=== PATIENT | female | born 1970 | race Caucasian/White ===

== ENCOUNTER 2024-08-14 20:44 | Inpatient (IN) | payer MEDICAID, OTHER ==
[~2024-08-14] VITALS: Ht 165.1 cm; Wt 142.0 kg
[~2024-08-14 20:44] MED LIST: ALBU108A5 INH; ASPI81CH59 PO; BUPR100T16 PO; CARV6.2551 PO; FLUT250M2 INH; LEVO100T8 PO; LISI20TA56 PO; METO25TA5 PO
[2024-08-14] MEDS: ALBUTEROL SULF 2.5 MG/0.5ML(0.5%) NEB SOLN HHN ONE (21:16)
[2024-08-14] MEDS: IPRATROPIUM BROM 0.5 MG/2.5ML INH SOL HHN ONE (21:16)
[2024-08-14 21:31] LABS: Basophils # (auto) 0.1 10 ^3/uL (0-0.2); Basophils % (auto) 1.1 % (0.0-2.0); Eosinophils # (auto) 0.4 10 ^3/uL (0-0.8); Eosinophils % (auto) 4.8 % (0.0-7.0); Hematocrit 46.5 % (36.0-46.0); Hemoglobin 15.6 g/dL (12.2-16.2); Lymphocytes # (auto) 1.8 10 ^3/uL (0.4-5.4); Lymphocytes % (auto) 21.9 % (10.0-50.0); Mean Corpuscular Hemoglobin 31.4 pg (28.0-32.0); Mean Corpuscular Hgb Conc. 33.7 g/dL (32.0-36.0); Mean Corpuscular Volume 93.4 fL (80.0-100.0); Monocytes # (auto) 0.5 10 ^3/uL (0-1.3); Monocytes % (auto) 6.4 % (0.0-12.0); Neutrophils # (auto) 5.6 10 ^3/uL (1.6-8.6); Neutrophils % (auto) 65.8 % (37.0-80.0); Nucleated Red Blood Cells % 0.1 %; Platelet Count (auto) 335 10^3/uL (140-450); Red Blood Cells 4.97 10^6/uL (4.0-5.20); Red Cell Distribution Width 15.1 % (11.8-14.3); White Blood Cell 8.4 10^3/uL (4.4-10.8)
[2024-08-14 21:35] LABS: Alanine Aminotransferase 50 U/L (7-40); Albumin 4.8 g/dL (3.2-4.8); Alkaline Phosphatase 107 U/L (46-116); Anion Gap 6 (5-15); Aspartate Aminotransferase 42 U/L (13-40); Blood Urea Nitrogen 15 mg/dL (9-23); Calcium 10.6 mg/dL (8.7-10.4); Carbon Dioxide 31 mmol/L (20-31); Chloride 100 mmol/L (98-107); Glucose 229 mg/dL (74-106); Magnesium 2.2 mg/dL (1.6-2.6); Potassium 4.1 mmol/L (3.5-5.1); Sodium 137 mmol/L (136-145); Total Protein 8.2 g/dL (5.7-8.2)
[2024-08-14 21:36] LABS: Bilirubin, Total 0.4 mg/dL (0.2-1.0)
[2024-08-14 21:45] LABS: INR 1.09 (0.9-1.15); Partial Thromboplastin Time 27.1 SEC (24.5-34.5); Prothrombin Time 11.5 sec (9.3-11.8)
[2024-08-14 22:02] VITALS: PULSE 82; RESP 18; O2SAT 94
[2024-08-14] MEDS: methylPREDNISolone SOD SUCC 125 MG/2 ML VL IV ONE (22:42)
[2024-08-14 22:55] LABS: COVID19 ANTIGEN SOFIA FIA NEGATIVE (NEGATIVE)
[2024-08-14 23:35] VITALS: BP 154/80; PULSE 76; O2SAT 100
[2024-08-14 23:45] VITALS: O2SAT 96
[2024-08-14] MEDS ORDERED: ONDANSETRON HCL 4 MG/2 ML VIAL IV PRN (23:45)
[2024-08-14] MEDS ORDERED: MORPHINE SULFATE INJ 2 MG/ml SYRG IV PRN (23:45)
[2024-08-14] MEDS ORDERED: TEMAZEPAM 15 MG CAP PO PRN (23:45)
[2024-08-14] MEDS ORDERED: NITROGLYCERIN 0.4 MG SL TAB SL PRN (23:45)
[2024-08-14] MEDS ORDERED: ALBUTEROL SULF 2.5 MG/0.5ML(0.5%) NEB SOLN NEB PRN (23:45)
[2024-08-14] MEDS ORDERED: IPRATROPIUM BROM 0.5 MG/2.5ML INH SOL NEB PRN (23:45)
[2024-08-14] MEDS ORDERED: ACETAMINOPHEN 325 MG TAB PO PRN (23:45)
[2024-08-15] VITALS (9 sets, daily range): BP systolic 123–154; BP diastolic 55–80; PULSE 80–90; RESP 16–21; TEMP 97–98.6; O2SAT 92–100
[2024-08-15 02:23] LABS: Urine Bacteria None Seen /hpf (None Seen)
[2024-08-15] MEDS ORDERED: ONDANSETRON HCL 4 MG/2 ML VIAL IV PRN (02:30)
[2024-08-15] MEDS ORDERED: ACETAMINOPHEN 325 MG TAB PO PRN (02:30)
[2024-08-15] MEDS ORDERED: MORPHINE SULFATE INJ 2 MG/ml SYRG IV PRN (02:30)
[2024-08-15] MEDS ORDERED: NITROGLYCERIN 0.4 MG SL TAB SL PRN (02:30)
[2024-08-15 03:18] LABS: Urine Blood Negative /uL (Negative); Urine Clarity Turbid (Clear); Urine Color Yellow (Yellow); Urine Protein, UAD 1+ (Negative); Urine Specific Gravity 1.029 (1.001-1.035); Urine Urobilinogen 2 mg/dL (Negative); Urine WBC 23 /hpf (0 - 5)
[2024-08-15 03:25] LABS: Amphetamine Screen, Urine Pos (NEGATIVE); Barbiturate Scree,Urine Neg (NEGATIVE); Benzodiazephine Screen, Urine Neg (NEGATIVE)
[2024-08-15 03:26] LABS: Cannabinoid Screen, Urine Neg (NEGATIVE); Cocaine Screen, Urine Neg (NEGATIVE); Opiate Scree,Urine Pos (NEGATIVE); Phencyclidine Screen, Urine Neg (NEGATIVE)
[2024-08-15] MEDS: HYDROcodone-ACET 5/325MG TAB PO PRN (03:34)
[2024-08-15 03:38] LABS: Basophils # (auto) 0.1 10 ^3/uL (0-0.2); Basophils % (auto) 0.6 % (0.0-2.0); Eosinophils # (auto) 0.1 10 ^3/uL (0-0.8); Eosinophils % (auto) 1.2 % (0.0-7.0); Hemoglobin 14.4 g/dL (12.2-16.2); Lymphocytes # (auto) 0.7 10 ^3/uL (0.4-5.4); Lymphocytes % (auto) 7.1 % (10.0-50.0); Mean Corpuscular Hemoglobin 32.1 pg (28.0-32.0); Mean Corpuscular Hgb Conc. 34.2 g/dL (32.0-36.0); Mean Corpuscular Volume 93.7 fL (80.0-100.0); Monocytes # (auto) 0.1 10 ^3/uL (0-1.3); Monocytes % (auto) 1.5 % (0.0-12.0); Neutrophils # (auto) 8.4 10 ^3/uL (1.6-8.6); Neutrophils % (auto) 89.6 % (37.0-80.0); Nucleated Red Blood Cells % 0.1 %; Platelet Count (auto) 271 10^3/uL (140-450); Red Blood Cells 4.48 10^6/uL (4.0-5.20); Red Cell Distribution Width 14.7 % (11.8-14.3); White Blood Cell 9.4 10^3/uL (4.4-10.8)
[2024-08-15 03:49] LABS: Chloride 98 mmol/L (98-107); Potassium 4.3 mmol/L (3.5-5.1); Sodium 137 mmol/L (136-145)
[2024-08-15 03:50] LABS: Anion Gap 6 (5-15); Carbon Dioxide 33 mmol/L (20-31)
[2024-08-15 03:51] LABS: Calcium 9.9 mg/dL (8.7-10.4)
[2024-08-15 03:55] LABS: Glucose 299 mg/dL (74-106)
[2024-08-15 03:56] LABS: BUN/Creatinine Ratio 14.8 (10.0-20.0); Blood Urea Nitrogen 18 mg/dL (9-23)
[2024-08-15] MEDS: LORazepam 0.5 MG TAB PO PRN (05:27)
[2024-08-15] MEDS: ASPirin 81 mg TAB PO SCH (09:47)
[2024-08-15] MEDS: ENOXAPARIN SOD 40 MG/0.4 ML SYRINGE SC SCH (09:48)
[2024-08-15] MEDS: METOPROLOL TARTRATE 25 MG TAB PO SCH (09:48)
[2024-08-15] MEDS ORDERED: ASPirin 81 mg TAB PO SCH (10:00)
[2024-08-15] MEDS ORDERED: ENOXAPARIN SOD 40 MG/0.4 ML SYRINGE SC SCH (10:00)
[2024-08-15] MEDS ORDERED: levoFLOXacin 500MG 100 ML IV SCH ×2 (10:00)
[2024-08-15] MEDS: DOXYCYCLINE 100MG/250ML 250 ML IV SCH (10:05)
[2024-08-15] MEDS ORDERED: CHOL20007 PO (17:09)
[2024-08-15] MEDS ORDERED: FURO40TA4 PO (17:09)
[2024-08-15] MEDS ORDERED: CLOP75TA70 PO (17:09)
[2024-08-15] MEDS ORDERED: BUPR-346 PO (17:09)
[2024-08-15] MEDS ORDERED: POTA-36 PO (17:09)
[2024-08-15] MEDS ORDERED: ATOR40TA52 PO (17:09)
[2024-08-15] MEDS ORDERED: ALBUAER3 IN (17:10)
[2024-08-15] MEDS ORDERED: NAPR220C PO (17:10)
[2024-08-15] MEDS: buPROPion HCL 100 MG TAB PO SCH (19:00)
[2024-08-15] MEDS: ALBUTEROL SULF 2.5 MG/0.5ML(0.5%) NEB SOLN NEB PRN (19:32)
[2024-08-15] MEDS: IPRATROPIUM BROM 0.5 MG/2.5ML INH SOL NEB PRN (19:32)
[2024-08-15] MEDS: ATORVASTATIN 20 MG TAB PO SCH (21:03)
[2024-08-15] MEDS: DOCUSATE SOD 100 MG CAP PO PRN (21:56)
[2024-08-15] MEDS ORDERED: ATORVASTATIN 20 MG TAB PO SCH (22:00)
[2024-08-16] VITALS (7 sets, daily range): BP systolic 123–133; BP diastolic 52–86; PULSE 77–90; RESP 17–20; TEMP 97.6–98.2; O2SAT 94–100
[2024-08-16] MEDS: LEVOTHYROXINE SODIUM 100 MCG TAB PO SCH (06:17)
[2024-08-16] MEDS: FUROSEMIDE 40 MG TAB PO SCH (09:13)
[2024-08-16 11:09] LABS: Basophils # (auto) 0.1 10 ^3/uL (0-0.2); Basophils % (auto) 1.2 % (0.0-2.0); Eosinophils # (auto) 0.3 10 ^3/uL (0-0.8); Eosinophils % (auto) 2.6 % (0.0-7.0); Hematocrit 43.8 % (36.0-46.0); Lymphocytes # (auto) 1.9 10 ^3/uL (0.4-5.4); Lymphocytes % (auto) 18.8 % (10.0-50.0); Mean Corpuscular Hemoglobin 32.5 pg (28.0-32.0); Mean Corpuscular Hgb Conc. 34.3 g/dL (32.0-36.0); Mean Corpuscular Volume 94.7 fL (80.0-100.0); Monocytes # (auto) 0.7 10 ^3/uL (0-1.3); Monocytes % (auto) 6.8 % (0.0-12.0); Neutrophils % (auto) 70.6 % (37.0-80.0); Nucleated Red Blood Cells % 0.3 %; Platelet Count (auto) 344 10^3/uL (140-450); Red Blood Cells 4.63 10^6/uL (4.0-5.20); Red Cell Distribution Width 15.2 % (11.8-14.3); White Blood Cell 9.9 10^3/uL (4.4-10.8)
[2024-08-16 11:15] LABS: Anion Gap 4 (5-15); Carbon Dioxide 33 mmol/L (20-31); Chloride 98 mmol/L (98-107); Potassium 4.6 mmol/L (3.5-5.1); Sodium 135 mmol/L (136-145)
[2024-08-16 11:17] LABS: Calcium 10.1 mg/dL (8.7-10.4)
[2024-08-16 11:21] LABS: BUN/Creatinine Ratio 15.5 (10.0-20.0); Blood Urea Nitrogen 18 mg/dL (9-23); Glucose 213 mg/dL (74-106)
[2024-08-16] MEDS ORDERED: LISI20TA56 PO (13:03)
[2024-08-16] MEDS ORDERED: LEVO100T8 PO (13:03)
[2024-08-16] MEDS ORDERED: POTA-36 PO (13:03)
[2024-08-16] MEDS ORDERED: ALBU108A5 INH (13:03)
[2024-08-16] MEDS ORDERED: ASPI81CH59 PO (13:03)
[2024-08-16] MEDS ORDERED: BUPR100T16 PO (13:03)
[2024-08-16] MEDS ORDERED: FLUT250M2 INH (13:03)
[2024-08-16] MEDS ORDERED: CLOP75TA70 PO (13:03)
[2024-08-16] MEDS ORDERED: FURO40TA4 PO (13:03)
[2024-08-16] MEDS ORDERED: ATOR40TA52 PO (13:03)
[2024-08-16] MEDS ORDERED: CARV6.2551 PO (13:03)
== END 2024-08-16 16:25 | disposition home or self-care (01) | DRG 133 ==
LOC: ER 20:44 → TELE 23:47 → TELE-CENTR 08-15 14:49
PROVIDERS: ADMIT Nurse Practitioner; ATTEND Hospitalist
PROC: 5A09357 Assistance with Respiratory Ventilation, Less than 24 Consecutive Hours, Continuous Positive Airway Pressure (ICD-10-PCS; principal; 2024-08-14)
DX: J96.21 Acute and chronic respiratory failure with hypoxia (principal); I21.A1 Myocardial infarction type 2; I50.23 Acute on chronic systolic (congestive) heart failure; I42.8 Other cardiomyopathies; J44.1 Chronic obstructive pulmonary disease with (acute) exacerbation; Z68.43 Body mass index [BMI] 50.0-59.9, adult; I11.0 Hypertensive heart disease with heart failure; N39.0 Urinary tract infection, site not specified; E66.01 Morbid (severe) obesity due to excess calories; E78.5 Hyperlipidemia, unspecified; F17.210 Nicotine dependence, cigarettes, uncomplicated; F15.10 Other stimulant abuse, uncomplicated; Z20.822 Contact with and (suspected) exposure to COVID-19; I25.10 Atherosclerotic heart disease of native coronary artery without angina pectoris; E03.9 Hypothyroidism, unspecified; Z85.41 Personal history of malignant neoplasm of cervix uteri; Z88.0 Allergy status to penicillin; Z90.710 Acquired absence of both cervix and uterus; Z90.49 Acquired absence of other specified parts of digestive tract; Z91.199 Patient's noncompliance with other medical treatment and regimen due to unspecified reason; Z82.49 Family history of ischemic heart disease and other diseases of the circulatory system; Z99.81 Dependence on supplemental oxygen
CPT/HCPCS: 36415; 71045; 80048; 80053; 80307; 81001; 83036; 83735; 83880; 84484; 85025; 85610; 85730; 87081; 87426; 93005; 94640; 94660; 99291; G0378; J3490

== ENCOUNTER 2025-07-04 18:59 | Inpatient (IN) | payer MEDICAID ==
[~2025-07-04] VITALS: Ht 165.1 cm; Wt 130.7 kg
[~2025-07-04 18:59] MED LIST changes: +ATOR40TA52 PO; +CLOP75TA70 PO; +FURO40TA4 PO; -METO25TA5 PO; +POTA-36 PO
--- NOTE | 2025-07-04 19:53 | ED.PDOC ---
History of Present Illness(SKN HPI Comments 55-YEAR-OLD DIABETIC FEMALE CC OF PAIN TO THE RIGHT FOOT S/P SPIDER BITE THREE WEEKS AGO PT STATES SHE COMPLETED ABX TREATMENT BUT STILL C/O OF GREEN DISCHARGE FROM WOUND BASE. DENIES FEVER, CHILLS, NAUSEA, VOMITING, CHEST PAIN, SHORTNESS BREATH, ABDOMINAL PAIN, NUMBNESS, WEAKNESS, OR DIFFICULTY BREATHING. Chief Complaint: Wound Check Time Seen by MD: 19:08 History of Present Illness: Nurses Notes, Medications, Allergies Allergies: Coded Allergies: Methylphenidate (Verified Allergy, Unknown, 08/14/24) Penicillins (Verified Allergy, Unknown, 08/14/24) Home Meds Active Scripts Carvedilol (Carvedilol) 6.25 Mg Tab, 1 TAB PO BID for 100 Days, #200 TAB Prov:TRACI HOGAN MD 08/16/24 Aspirin (Aspirin Low Dose) 81 Mg Chw, 1 TAB PO DAILY for 60 Days, #60 TAB.CHEW Prov:TRACI HOGAN MD 08/16/24 Lisinopril (Lisinopril) 20 Mg Tab, 1 TAB PO BID for 45 Days, #90 TAB Prov:TRACI HOGAN MD 08/16/24 Levothyroxine Sodium (Levothyroxine Sodium) 100 Mcg Tab, 1 TAB PO QAM for 60 Days, #60 TAB Prov:TRACI HOGAN MD 08/16/24 Albuterol Sulfate (Albuterol Sulfate Hfa) 108 Mcg/Act Aer, 1 PUFF INH Q6HP PRN for SHORTNESS OF BREATH OR WHEEZIN for 30 Days, #8.5 AER Prov:TRACI HOGAN MD 08/16/24 Bupropion Hcl (Bupropion Hcl Er) 100 Mg Tab, 1 TAB PO BID for 14 Days, #28 TAB Prov:TRACI HOGAN MD 08/16/24 Fluticasone-Salmeterol (Advair Diskus 250/50) 1 Puff Ih, 1 PUFF INH BID for 30 Days, #60 INH Prov:TRACI HOGAN MD 08/16/24 Atorvastatin Calcium (ATORVASTATIN CALCIUM) 40 Mg Tab, 1 TAB PO QPM, #90 TAB 3 Refills Prov:TRACI HOGAN MD 08/16/24 Furosemide (Furosemide) 40 Mg Tab, 40 MG PO DAILY for 30 Days, #30 TAB Prov:TRACI HOGAN MD 08/16/24 Potassium Chloride (POTASSIUM CHLORIDE CR) 10 Meq Tb, 10 MEQ PO DAILY for 30 Days, #30 TAB Prov:TRACI HOGAN MD 08/16/24 Clopidogrel Bisulfate (CLOPIDOGREL) 75 Mg Tab, 75 MG PO DAILY for 30 Days, MG Prov:TRACI HOGAN MD 08/16/24 Information Source: Patient Mode of Arrival: Ambulatory Past Medical History PAST MEDICAL HISTORY: Cancer, CHF, COPD, HTN, MO, Thyroid Surgical History: Cholecystectomy, Hernia Repair, Hysterectomy, Tonsillectomy FOOD SAMPLER History: No Pertinent FOOD SAMPLER History Family History Family History: Family hx of Cancer Social History Smoker: Cigarettes Alcohol: Occasionally Drugs: Methamphetamine Lives In: Home All Other Systems: Reviewed and Negative (SEE HPI) Physical Exam General Appearance: No Apparent Distress, Normal HEENT: Normal ENT Inspection, Pharynx Normal Neck: Full Range of Motion, Non-Tender Respiratory: Lungs Clear, No Respiratory Distress, Normal Breath Sounds Cardiovascular: No Edema, No JVD, No Murmur, No Gallop, Normal Peripheral Pulses, Regular Rate/Rhythm Breast Exam: Deferred Gastrointestinal: No Organomegaly, Non Tender, No Pulsatile Mass, Normal Bowel Sounds, Soft Genitalia: Deferred Pelvic: Deferred Rectal: Deferred Extremities: No calf tenderness, Normal capillary refill, Normal range of motion, Pedal edema (RIGHT FOOT PLUS ONE PITTING EDEMA) Musculoskeletal : Apperance: Normal Neurologic: Alert, No Motor Deficits, Normal Affect, Normal Mood, No Sensory Deficits Cerebellar Function: Normal Reflexes: Normal Skin: Dry, Normal Color, Warm, Wounds (APPROXIMATE QUARTER SIZE ULCERATED WOUND PROXIMAL BASE 1ST DIGIT WITH NECROTIC TISSUE AND GREEN DISCHARGE SURROUNDING ERYTHEMA WITH EDEMA STRENGTH SENSORY MOTION INTACT) Lymphatic: No Adenopathy Was a procedure done? Was a procedure done?: No Differential Diagnosis (INTG) Differential Diagnosis: Cellulitis, Contusion, Hematoma, Puncture Wound Differential Diagnosis: Abscess Differential Diagnosis: Fracture X-Ray, Labs, Meds, VS Vital Signs Date Time Temp Pulse Resp B/P (MAP) Pulse Ox O2 Delivery O2 Flow Rate FiO2 07/04/25 20:09 101 18 96 Room Air 07/04/25 20:09 97.8 101 18 144/116 (125) 96 97.8 07/04/25 19:01 97.8 101 18 144/116 91 97.8 Lab Test 8/28/25 22:13 07/04/25 20:20 Range/Units Lactic Acid Level 2.1 *H 2.5 *H 0.4-2.0 mmol/L White Blood Count 9.4 4.4-10.8 10^3/uL Red Blood Count 5.06 4.0-5.20 10^6/uL Hemoglobin 15.5 12.2-16.2 g/dL Hematocrit 45.9 36.0-46.0 % Mean Corpuscular Volume 90.8 80.0-100.0 fL Mean Corpuscular Hemoglobin 30.6 28.0-32.0 pg Mean Corpuscular Hemoglobin Concent 33.7 32.0-36.0 g/dL Red Cell Distribution Width 15.8 H 11.8-14.3 % Platelet Count 343 140-450 10^3/uL Mean Platelet Volume 7.7 6.9-10.8 fL Neutrophils (%) (Auto) 69.2 37.0-80.0 % Lymphocytes (%) (Auto) 21.4 10.0-50.0 % Monocytes (%) (Auto) 5.8 0.0-12.0 % Eosinophils (%) (Auto) 2.5 0.0-7.0 % Basophils (%) (Auto) 1.1 0.0-2.0 % Neutrophils # (Auto) 6.5 1.6-8.6 10 ^3/uL Lymphocytes # (Auto) 2.0 0.4-5.4 10 ^3/uL Monocytes # (Auto) 0.5 0-1.3 10 ^3/uL Eosinophils # (Auto) 0.2 0-0.8 10 ^3/uL Basophils # (Auto) 0.1 0-0.2 10 ^3/uL Nucleated Red Blood Cells 0.1 % Prothrombin Time 11.4 9.3-11.8 sec Prothrombin Time INR 1.08 0.9-1.15 Activated Partial Thromboplast Time 25.6 24.5-34.5 SEC Sodium Level 136 136-145 mmol/L Potassium Level 4.3 3.5-5.1 mmol/L Chloride Level 99 98-107 mmol/L Carbon Dioxide Level 29 20-31 mmol/L Anion Gap 8 5-15 Blood Urea Nitrogen 17 9-23 mg/dL Creatinine 1.35 H 0.550-1.02 mg/dL Glomerular Filtration Rate Calc 47 >90 mL/min BUN/Creatinine Ratio 12.6 10.0-20.0 Serum Glucose 252 H 74-106 mg/dL Hemoglobin A1c 9.3 H <5.7 % A1C Calcium Level 9.9 8.7-10.4 mg/dL Total Bilirubin 0.3 0.2-1.0 mg/dL Aspartate Amino Transferase (AST) 31 13-40 U/L Alanine Aminotransferase (ALT) 32 7-40 U/L Alkaline Phosphatase 93 46-116 U/L Total Protein 7.7 5.7-8.2 g/dL Albumin 4.7 3.2-4.8 g/dL Current Medications Medications (Trade) Dose Ordered Sig/Kathleen Route Start Time Stop Time Status Last Admin Vancomycin HCl 250 ml @ 250 mls/hr ONCE ONCE IV 07/04/25 20:15 07/04/25 21:14 DC 07/04/25 22:20 X-Ray, Labs, Meds, VS Comment CBC CMP WITHIN NORMAL LIMITS. LACTIC ACID ELEVATED X2. PATIENT GIVEN 500 ML FLUID BOLUS, AND 7 UNITS OF INSULIN TO COVER ELEVATED BLOOD SUGAR. ADMITTED FOR SPIDER BITE INFECTION IV ANTIBIOTICS, AND CONTROL OF PATIENT'S ELEVATED BLOOD SUGARS. Time of 1ST Reevaluation: 19:40 Reevaluation 1ST: Unchanged Time of 2ND Reevaluation: 21:11 Reevaluation 2ND: Unchanged Patient Education/Counseling: Diagnosis, Treatment, Prognosis, Need For Follow Up Family Education/Counseling: No Family Present SEPSIS Sepsis Screen Date sepsis recognized/suspect: Jul 04, 2025 Time Sepsis recognized/suspect: 1904 Recent Procedure: No On Antibiotic Therapy: Yes (COMPLETED ABX KEFLEX X10 DAYS AGO) Respiratory Rate >20: No Heart Rate >90: No Temp<36 C (96.8 F) or >38.3 C: No SBP <90 or MAP <65 mmHG: No New Acute Mental Status Change: No Is the patient on CPAP, BIPAP,: No Physician Orders Blood Culture (07/04/25 20:01) Wound Culture W/ Gs (07/04/25 20:01) Urinalysis (07/04/25 20:01) Vital Signs Date Time Temp Pulse Resp B/P (MAP) Pulse Ox O2 Delivery O2 Flow Rate FiO2 07/04/25 20:09 101 18 96 Room Air 07/04/25 20:09 97.8 101 18 144/116 (125) 96 97.8 07/04/25 19:01 97.8 101 18 144/116 91 97.8 Laboratory Tests Test 07/04/25 20:20 07/04/25 22:13 Lactic Acid Level 2.5 mmol/L (0.4-2.0) *H 2.1 mmol/L (0.4-2.0) *H White Blood Count 9.4 10^3/uL (4.4-10.8) Medications Medications Dose Ordered Sig/Kathleen Route Start Time Stop Time Status Last Admin Dose Admin Vancomycin HCl 250 ml @ 250 mls/hr ONCE ONCE IV 07/04/25 20:15 07/04/25 21:14 DC 07/04/25 22:20 Departure 1 Departure Time of Disposition: 21:11 Impression: Primary Impression: Puncture wound of foot excluding toes with infection Qualified Codes: S91.331A - Puncture wound without foreign body, right foot, initial encounter; L08.9 - Local infection of the skin and subcutaneous tissue, unspecified Additional Impression: Uncontrolled diabetes mellitus Qualified Codes: E11.65 - Type 2 diabetes mellitus with hyperglycemia Disposition: ADMITTED INPATIENT Condition: Stable Discharged With: Self Critical Care Note Critical Care Time?: No Stability Stability form required: RYAN Nguyen Jul 04, 2025 19:53
[2025-07-04 20:50] LABS: Hematocrit 45.9 % (36.0-46.0); Hemoglobin 15.5 g/dL (12.2-16.2); Mean Corpuscular Hemoglobin 30.6 pg (28.0-32.0); Mean Corpuscular Volume 90.8 fL (80.0-100.0); Nucleated Red Blood Cells % 0.1 %
[2025-07-04 21:05] LABS: Alanine Aminotransferase 32 U/L (7-40); Albumin 4.7 g/dL (3.2-4.8); Alkaline Phosphatase 93 U/L (46-116); Anion Gap 8 (5-15); BUN/Creatinine Ratio 12.6 (10.0-20.0); Bilirubin, Total 0.3 mg/dL (0.2-1.0); Blood Urea Nitrogen 17 mg/dL (9-23); Calcium 9.9 mg/dL (8.7-10.4); Carbon Dioxide 29 mmol/L (20-31); Chloride 99 mmol/L (98-107); Potassium 4.3 mmol/L (3.5-5.1); Total Protein 7.7 g/dL (5.7-8.2)
[2025-07-04 21:06] LABS: Glucose 252 mg/dL (74-106); Sodium 136 mmol/L (136-145)
[2025-07-04 21:20] LABS: Lactic Acid w/Reflex 2.5 mmol/L (0.4-2.0)
[2025-07-04] MEDS: VANCOMYCIN 1GM/250ML KIT 250 ML IV ONE (22:20)
[2025-07-04] MEDS ORDERED: MORPHINE SULFATE INJ 2 MG/ml SYRG IV PRN (22:30)
[2025-07-04] MEDS ORDERED: NITROGLYCERIN 0.4 MG SL TAB SL PRN (22:30)
[2025-07-04] MEDS: InsuLIN REG 1unit/0.01ml Soln (100units/ml) IV ONE (23:15)
[2025-07-04 23:16] LABS: INR 1.08 (0.9-1.15); Partial Thromboplastin Time 25.6 SEC (24.5-34.5); Prothrombin Time 11.4 sec (9.3-11.8)
[2025-07-04] MEDS: SODIUM CHLORIDE 0.9% 500 ML IV ONE ×2 (23:17→23:52)
[2025-07-05] VITALS (9 sets, daily range): BP systolic 110–158; BP diastolic 59–100; PULSE 71–97; RESP 16–20; TEMP 96.8–98.4; O2SAT 90–98
[2025-07-05] MEDS: SODIUM CHLORIDE 0.9% 500 ML IV ONE (01:15)
[2025-07-05] MEDS ORDERED: VANCOMYCIN PER PHARMACY 0 MG IV SCH (01:15)
[2025-07-05] MEDS: MORPHINE SULFATE INJ 2 MG/ml SYRG IV PRN (03:23)
--- NOTE | 2025-07-05 03:52 | DVHHPRES ---
History of Present Illness Resident Creating Document: RAMAKRISHNA KURTZ RESIDENT History of Present Illness Steffanie Faulkner is a 55-year-old female with past medical history of insulin- dependent diabetes mellitus, congestive heart failure, chronic obstructive pulmonary disease, hypertension, hyperlipidemia, myocardial infarction, cervical cancer, and thyroid disease. She presents to the ED with complaints of right foot pain secondary to an ulcer that has been present for approximately three weeks. patient reports that the ulcer began after an insect bite while cleaning her garage. Despite taking antibiotics, the wound has not improved. She describes the pain as burning and itching in nature, rated 8/10 in intensity, worsened by walking and relieved with rest. The ulcer is noted to be black in color with white discharge. On arrival patient was septic due to wound infection. Patient normally uses 2 L oxygen at home. Patient will be admitted for further management. Past surgical history: partial hysterectomy, cholecystectomy, hernia repair, tonsillectomy Family history: family history of cancers Personal history: Patient smokes half a pack of cigarettes a day since 41 years, drinks occasionally, smokes methamphetamine Lives with: Family PCP: Review of Systems Constitutional: No: Fever, Chills, Sweats, Weakness, Malaise, Other Eyes: No: Pain, Vision change, Conjunctivae inflammation, Eyelid inflammation, Other, Redness ENT: No: Ear pain, Ear discharge, Nose pain, Nose discharge, Nose congestion, Mouth pain, Mouth swelling, Throat pain, Throat swelling, Other Respiratory: Shortness of breath; No: Cough, Dry, SOB with excertion, Wheezing, Hemoptysis, Pleuritic Pain, Sputum, Wheezing, Other Cardiovascular: No: Chest Pain, Palpitations, Orthopnea, Paroxysmal Noc. Dyspnea, Edema, Lt Headedness, Other Gastrointestinal: No: Nausea, Vomiting, Abdominal Pain, Diarrhea, Constipation, Melena, Hematochezia, Other Genitourinary: No Dysuria, No Frequency, No Incontinence, No Hematuria, No Retention, No Other Musculoskeletal: foot pain; No: other, neck pain, shoulder pain, arm pain, back pain, hand pain, leg pain Skin: No: Rash, Lesions, Jaundice, Bruising, Other Neurological: No: Weakness, Numbness, Incoordination, Change in speech, Confusion, Seizures, Other Allergies: Coded Allergies: Methylphenidate (Verified Allergy, Unknown, 08/14/24) Penicillins (Verified Allergy, Unknown, 08/14/24) Medications Current Medications Medications Dose Ordered Sig/Kathleen Route Start Time Stop Time Status Last Admin Dose Admin Acetaminophen 325 mg Q4HP PRN PO 07/04/25 22:30 Acetaminophen/ Hydrocodone Bitart 1 tab Q4HP PRN PO 07/04/25 22:30 Ondansetron HCl 4 mg Q4HP PRN IV 07/04/25 22:30 Morphine Sulfate 2 mg Q4HPRN PRN IV 07/04/25 22:30 07/05/25 03:23 2 MG Nitroglycerin 0.4 mg Q5MINP PRN SL 07/04/25 22:30 Morphine Sulfate 2 mg Q30M PRN IV 07/04/25 22:30 Vancomycin HCl 0 ml @ 0 mls/hr UD IV 07/05/25 01:15 UNV Cefepime HCl 50 ml @ 12.5 mls/hr Q12HR IV 07/05/25 10:00 Exam Vital Signs Vital Signs Date Time Temp Pulse Resp B/P (MAP) Pulse Ox O2 Delivery O2 Flow Rate FiO2 07/05/25 03:23 87 16 154/100 07/04/25 20:09 96 Room Air 07/04/25 20:09 97.8 97.8 Exam General: Patient alert and oriented in person, place and time. Patient following commands. moderate distress HEENT: Normocephalic, atraumatic, moist mucous membranes Respiratory/pulmonary: Clear lungs bilaterally, vesicular murmurs present in almost all lung stokes, no associated crackles or wheezes. Cardiovascular: Normal heart sounds S1 and S2 with no associated murmurs Abdomen: Abdomen nondistended, there is no pain to palpation in any of the abdominal quadrants, no palpable masses. Extremities: There is no peripheral edema present at the lower extremities. Right foot ulcer on base of 1st metatarsal with black eschar, white discharge, Erythematous Peripheral Pulses: 3+ Radial (R). 3+ Radial (L). 3+ Dorsalis pedis (R). 3+ Dorsalis pedis(L) Skin: No rashes or pruritus, there is no sacral edema present at this time. Neurological: Intact cranial nerves with no focal neurologic deficits Labs/Xrays Labs Test 07/04/25 23:08 07/04/25 22:13 07/04/25 20:20 Range/Units POC Glucose 210 H 70-106 mg/dl Lactic Acid Level 2.1 *H 0.4-2.0 mmol/L White Blood Count 9.4 4.4-10.8 10^3/uL Red Blood Count 5.06 4.0-5.20 10^6/uL Hemoglobin 15.5 12.2-16.2 g/dL Hematocrit 45.9 36.0-46.0 % Mean Corpuscular Volume 90.8 80.0-100.0 fL Mean Corpuscular Hemoglobin 30.6 28.0-32.0 pg Mean Corpuscular Hemoglobin Concent 33.7 32.0-36.0 g/dL Red Cell Distribution Width 15.8 H 11.8-14.3 % Platelet Count 343 140-450 10^3/uL Mean Platelet Volume 7.7 6.9-10.8 fL Neutrophils (%) (Auto) 69.2 37.0-80.0 % Lymphocytes (%) (Auto) 21.4 10.0-50.0 % Monocytes (%) (Auto) 5.8 0.0-12.0 % Eosinophils (%) (Auto) 2.5 0.0-7.0 % Basophils (%) (Auto) 1.1 0.0-2.0 % Neutrophils # (Auto) 6.5 1.6-8.6 10 ^3/uL Lymphocytes # (Auto) 2.0 0.4-5.4 10 ^3/uL Monocytes # (Auto) 0.5 0-1.3 10 ^3/uL Eosinophils # (Auto) 0.2 0-0.8 10 ^3/uL Basophils # (Auto) 0.1 0-0.2 10 ^3/uL Nucleated Red Blood Cells 0.1 % Prothrombin Time 11.4 9.3-11.8 sec Prothrombin Time INR 1.08 0.9-1.15 Activated Partial Thromboplast Time 25.6 24.5-34.5 SEC Sodium Level 136 136-145 mmol/L Potassium Level 4.3 3.5-5.1 mmol/L Chloride Level 99 98-107 mmol/L Carbon Dioxide Level 29 20-31 mmol/L Anion Gap 8 5-15 Blood Urea Nitrogen 17 9-23 mg/dL Creatinine 1.35 H 0.550-1.02 mg/dL Glomerular Filtration Rate Calc 47 >90 mL/min BUN/Creatinine Ratio 12.6 10.0-20.0 Serum Glucose 252 H 74-106 mg/dL Hemoglobin A1c 9.3 H <5.7 % A1C Calcium Level 9.9 8.7-10.4 mg/dL Total Bilirubin 0.3 0.2-1.0 mg/dL Aspartate Amino Transferase (AST) 31 13-40 U/L Alanine Aminotransferase (ALT) 32 7-40 U/L Alkaline Phosphatase 93 46-116 U/L Total Protein 7.7 5.7-8.2 g/dL Albumin 4.7 3.2-4.8 g/dL SEPSIS Sepsis Screen Date sepsis recognized/suspect: Jul 04, 2025 Time Sepsis recognized/suspect: 1904 Recent Procedure: No On Antibiotic Therapy: Yes (COMPLETED ABX KEFLEX X10 DAYS AGO) Respiratory Rate >20: No Heart Rate >90: No Temp<36 C (96.8 F) or >38.3 C: No SBP <90 or MAP <65 mmHG: No New Acute Mental Status Change: No Is the patient on CPAP, BIPAP,: No Physician Orders Blood Culture (07/04/25 20:01) Wound Culture W/ Gs (07/04/25 20:01) Urinalysis (07/04/25 20:01) Admit (07/04/25 22:25) Allergies (07/04/25:25) Code Status (07/04/25 22:25) Acetaminophen Tablet (Tylenol Tablet) (07/04/25 22:30) Hydrocodone-Acet 5/325mg Tab ([place] 5/32 (07/04/25 22:30) Ondansetron Hcl (Zofran) (07/04/25 22:30) Complete Blood Count (07/05/25 04:00) Comprehensive Metabolic Panel (07/05/25 04:00) Npo (Nothing By Mouth) Diet (07/05/25 Breakfast) Condition: Serious (07/04/25 22:25) Bedrest With Bathroom Privileg (07/04/25 22:25) Morphine Sulfate Injection (07/04/25 22:30) Nitroglycerin Sublingual (Ntrostat Subli (07/04/25 22:30) Morphine Sulfate Injection (07/04/25 22:30) Oxygen By Nasal Cannula (07/04/25 22:25) Stat Ekg For Chest Pain (07/04/25 22:25) Notify Of Changes From Base (07/04/25 22:25) [employer]ision Agriculture Specialist For 24 Hours (07/04/25 22:25) Emergency Dysrhythmia Protocol (07/04/25 22:25) Rhythm Strips Once Every Shift (07/04/25 22:25) Urinalysis (07/04/25 22:45) Drug Screen (07/04/25 22:45) Vancomycin Per Pharmacy (07/05/25 01:15) Cefepime 1gm/ 50ml (Maxipime 1gm/50ml) (07/05/25 10:00) * Wound Consult (07/05/25 ) Vital Signs Date Time Temp Pulse Resp B/P (MAP) Pulse Ox O2 Delivery O2 Flow Rate FiO2 07/05/25 03:23 87 16 154/100 07/04/25 20:09 101 18 96 Room Air 07/04/25 20:09 97.8 101 18 144/116 (125) 96 97.8 Laboratory Tests Test 07/04/25 20:20 07/04/25 22:13 Lactic Acid Level 2.5 mmol/L (0.4-2.0) *H 2.1 mmol/L (0.4-2.0) *H White Blood Count 9.4 10^3/uL (4.4-10.8) Medications Medications Dose Ordered Sig/Kathleen Route Start Time Stop Time Status Last Admin Dose Admin Morphine Sulfate 2 mg Q4HPRN PRN IV 07/04/25 22:30 07/05/25 03:23 2 MG Sodium Chloride 500 ml @ 500 mls/hr Q1H ONCE IV 07/04/25 22:45 07/04/25 23:44 DC 07/04/25 23:52 500 MLS/HR Sodium Chloride 500 ml @ 500 mls/hr Q1H ONCE IV 07/05/25 01:15 07/05/25 02:14 DC 07/05/25 01:15 500 MLS/HR Vancomycin HCl 250 ml @ 250 mls/hr ONCE ONCE IV 07/04/25 20:15 07/04/25 21:14 DC 07/04/25 22:20 250 MLS/HR Assessment/Plan Assessment/Plan # Sepsis due to wound infection - IV fluids given - blood culture, wound culture, pending - Repeat lactic acid levels - Started on IV vancomycin, Cefepime - Wound consult placed # chronic hypoxic respiratory failure # history of CAD: Continue aspirin, clopidogrel # history of HFrEF: Ordered echo, ECG, BMP pending # Uncontrolled diabetes mellitus, [id number]-4.1, continue Ozempic # history of hypertension: Continue home medication # hyperlipidemia: Continue atorvastatin # history of cervical cancer status post partial hysterectomy # hypothyroidism: Continue home meds # nicotine dependence # Chronic methamphetamine use # suspected Noncompliance - patient counseled on cessation of smoking, methamphetamine abuse for 13 minute s # History of of depression/ anxiety: Continue home meds # grade 3 obesity: BMI 47.5 - counseled on lifestyle modifications, diet, exercise PPI prophylaxis: Protonix 40 mg DVT prophylaxis: Not indicated Goals of care addressed with the patient for more than 35 minutes: Full code status Case discussed with , patient and nurse Plan discussed with: Patient My Orders Orders - RAMAKRISHNA KURTZ RESIDENT Procedure Category Date Status Time Admit ADMIT 07/04/25 Transmitted 22:25 Allergies ROBERT 07/04/25 In Process 22:25 Code Status CODE 07/04/25 Transmitted 22:25 Acetaminophen Tablet PHA 07/04/25 In Process (Tylenol Tablet) 22:30 Hydrocodone-Acet PHA 07/04/25 In Process 5/325mg Tab ([place] 22:30 Ondansetron Hcl PHA 07/04/25 In Process (Zofran) 22:30 Complete Blood Count LAB 07/05/25 Logged 04:00 Comprehensive LAB 07/05/25 Logged Metabolic Panel 04:00 Npo (Nothing By DIET 07/05/25 Transmitted Mouth) Diet Breakfast Condition: Serious ROBERT 07/04/25 In Process 22:25 Bedrest With Bathroom ROBERT 07/04/25 In Process Privileg 22:25 Morphine Sulfate PHA 07/04/25 In Process Injection 22:30 Nitroglycerin PHA 07/04/25 In Process Sublingual (Ntrostat 22:30 Morphine Sulfate PHA 07/04/25 In Process Injection 22:30 Oxygen By Nasal RT 07/04/25 Transmitted Cannula 22:25 Stat Ekg For Chest ROBERT 07/04/25 In Process Pain 22:25 Notify Of Changes ROBERT 07/04/25 In Process From Base 22:25 [employer] Specialist For ROBERT 07/04/25 In Process 24 Hours 22:25 Emergency Dysrhythmia [facility] 07/04/25 In Process Protocol 22:25 Rhythm Strips Once [facility] 07/04/25 In Process Every Shift 22:25 Urinalysis LAB 07/04/25 Logged 22:45 Drug Screen LAB 07/04/25 Logged 22:45 Vancomycin Per PHA 07/05/25 Pending Pharmacy 01:15 Cefepime 1gm/ 50ml PHA 07/05/25 In Process (Maxipime 1gm/50ml) 10:00 * Wound Consult CONS 07/05/25 Transmitted Date of Service: Jul 05, 2025 Billing Provider: DAJUAN ROBBINS MD Common Visit Codes: [id number] INP/OBS CARE (HIGH) Secondary Visit Codes: [id number] CARE PLAN 30 MINUTES RAMAKRISHNA KURTZ RESIDENT Jul 05, 2025 03:52
[2025-07-05 05:35] LABS: Hematocrit 43.5 % (36.0-46.0); Hemoglobin 14.5 g/dL (12.2-16.2); Mean Corpuscular Hemoglobin 30.5 pg (28.0-32.0); Mean Corpuscular Volume 91.4 fL (80.0-100.0); Nucleated Red Blood Cells % 0.1 %
[2025-07-05] MEDS: PANTOPRAZOLE 40 MG TAB PO SCH (05:49)
[2025-07-05] MEDS: HYDROcodone-ACET 5/325MG TAB PO PRN (05:50)
[2025-07-05 06:08] LABS: Alanine Aminotransferase 29 U/L (7-40); Albumin 4.4 g/dL (3.2-4.8); Alkaline Phosphatase 87 U/L (46-116); Anion Gap 7 (5-15); BUN/Creatinine Ratio 11.1 (10.0-20.0); Blood Urea Nitrogen 14 mg/dL (9-23); Calcium 9.3 mg/dL (8.7-10.4); Carbon Dioxide 28 mmol/L (20-31); Chloride 102 mmol/L (98-107); Potassium 4.3 mmol/L (3.5-5.1); Sodium 137 mmol/L (136-145); Total Protein 7.2 g/dL (5.7-8.2)
[2025-07-05 06:09] LABS: Bilirubin, Total 0.4 mg/dL (0.2-1.0)
[2025-07-05 06:28] LABS: Glucose 165 mg/dL (74-106)
[2025-07-05] MEDS ORDERED: DEXTROSE (50%) 50ML SYRG IV PRN (07:15)
[2025-07-05] MEDS: LEVOTHYROXINE SODIUM 100 MCG TAB PO ONE (08:37)
[2025-07-05] MEDS: VANCOMYCIN 1.25GM/250ML 250 ML IV SCH (09:22)
--- NOTE | 2025-07-05 09:57 | DVH ---
EXAM: XY CHEST XRAY 1 VIEW Indication: pain Technique: Single frontal view of the chest was obtained Comparison: XY CHEST PORTABLE on DOS: 08/14/24 FINDINGS: Lines and Tubes: None Lungs: No focal consolidation. Low lung volumes. Pleura: No effusion. No pneumothorax. Cardiomediastinal contours: Unremarkable Bones: No acute osseous abnormality. IMPRESSION: Low lung volumes. No acute cardiopulmonary disease.
[2025-07-05] MEDS: ACETAMINOPHEN 325 MG TAB PO ONE (10:47)
[2025-07-05] MEDS: CLOPIDOGREL BISULFATE 75 MG TAB PO SCH (11:00)
[2025-07-05] MEDS: CEFEPIME 1GM/50ML 50 ML IV SCH (11:40)
[2025-07-05] MEDS: ACCU-CHEK COMFORT CURVE STRIP VI SCH (12:17)
[2025-07-05] MEDS: LISINOPRIL 20 MG TAB PO SCH (12:17)
[2025-07-05] MEDS: FUROSEMIDE 40 MG TAB PO SCH (12:17)
[2025-07-05] MEDS: InsuLIN REG 1unit/0.01ml Soln (100units/ml) SC SCH (12:19)
[2025-07-05] MEDS: ONDANSETRON HCL 4 MG/2 ML VIAL IV PRN (14:03)
[2025-07-05 16:52] LABS: Urine Protein, UAD TRACE (Negative)
[2025-07-05 16:56] LABS: Amphetamine Screen, Urine Pos (NEGATIVE); Barbiturate Scree,Urine Neg (NEGATIVE); Benzodiazephine Screen, Urine Neg (NEGATIVE); Cannabinoid Screen, Urine Neg (NEGATIVE); Cocaine Screen, Urine Neg (NEGATIVE); Opiate Scree,Urine Pos (NEGATIVE); Phencyclidine Screen, Urine Neg (NEGATIVE)
--- NOTE | 2025-07-05 19:12 | DVHPNRES ---
Progress Note Date Seen: Jul 05, 2025 Resident Creating Document: RACHANA DWYER RESIDENT Medical Necessity Reason Pt with a Central, PICC or Fol: No Subjective Review of Systems This is a 55-year-old female with past medical history of insulin-dependent diabetes mellitus, COPD, CHF, hypertension, hyperlipidemia, [place], cervical cancer and thyroid disease. Patient came to the ER with a chief complaint of pain in the right foot secondary to an ulcer that has been there for almost 3 weeks. Patient mentions that she while cleaning her garage 3 weeks back, insect bit her foot post which an ulcer began to develop at the site. The patient was given oral antibiotics for the same, but there was no improvement seen in the wound. The patient describes the pain as a burning sensation, 8 on 10 in intensity. The patient states the pain is relieved with rest and aggravated by walking. Patient uses 2 L oxygen at home. Past medical history: CHF, COPD insulin-dependent diabetes mellitus, hypertension, hyperlipidemia, [place], cervical cancer, thyroid disease Past surgical history: partial hysterectomy, cholecystectomy, hernia repair, tonsillectomy Family history: family history of cancers Personal history: Patient smokes half a pack of cigarettes a day since 41 years, drinks occasionally, smokes methamphetamine Lives with: Family PCP: Constitutional: No: Fever, Chills, Sweats, Weakness, Malaise Eyes: No: Pain, Vision change, Conjunctivae inflammation, Eyelid inflammation, Other, Redness ENT: No: Ear pain, Ear discharge, Nose pain, Nose discharge, Nose congestion, Mouth pain, Mouth swelling, Throat pain, Throat swelling Respiratory: Shortness of breath; No: Cough, Dry, SOB with excertion, Wheezing, Hemoptysis, Pleuritic Pain, Sputum, Wheezing Cardiovascular: No: Chest Pain, Palpitations, Orthopnea, Paroxysmal Noc. Dyspnea, Edema, Lt Headedness Gastrointestinal: No: Nausea, Vomiting, Abdominal Pain, Diarrhea, Constipation, Melena, Hematochezia Genitourinary: No Dysuria, No Frequency, No Incontinence, No Hematuria, No Retention Musculoskeletal: foot pain; No: other, neck pain, shoulder pain, arm pain, back pain, hand pain, leg pain Skin: wound on right foot, Lesions, Jaundice, Bruising Neurological: No: Weakness, Numbness, Incoordination, Change in speech, Confusion, Seizures Allergies: Coded Allergies: Methylphenidate (Verified Allergy, Unknown, 08/14/24) Penicillins (Verified Allergy, Unknown, 08/14/24) Objective vital signs Vital Sign Date Time Temp Pulse Resp B/P (MAP) Pulse Ox O2 Delivery O2 Flow Rate FiO2 07/05/25 17:00 98.0 73 20 113/61 (78) 98 98.0 07/05/25 02:42 Nasal Cannula* 2 28 medications Current Medications Medications Dose Ordered Sig/Kathleen Route Start Time Stop Time Status Last Admin Dose Admin Acetaminophen 325 mg Q4HP PRN PO 07/04/25 22:30 Acetaminophen/ Hydrocodone Bitart 1 tab Q4HP PRN PO 07/04/25 22:30 07/05/25 14:02 1 TAB Ondansetron HCl 4 mg Q4HP PRN IV 07/04/25 22:30 07/05/25 14:03 4 MG Morphine Sulfate 2 mg Q4HPRN PRN IV 07/04/25 22:30 07/05/25 03:23 2 MG Vancomycin HCl 0 ml @ 0 mls/hr UD IV 07/05/25 01:15 Cefepime HCl 50 ml @ 12.5 mls/hr Q12HR IV 07/05/25 10:00 07/05/25 11:40 12.5 MLS/HR Pantoprazole Sodium 40 mg DAILY@0600 PO 07/05/25 06:00 07/05/25 05:49 40 MG Diagnostic Test (Pha) 1 strip Q6HR 07/05/25 12:00 07/05/25 17:41 1 STRIP Insulin Human Regular Q6HR SC 07/05/25 12:00 07/05/25 17:43 3 UNITS Dextrose 50 ml UD PRN IV 07/05/25 07:15 Levothyroxine Sodium 100 mcg QAM@0600 PO 07/06/25 06:00 Vancomycin HCl 250 ml @ 200 mls/hr Q12H IV 07/05/25 09:06 07/05/25 09:22 200 MLS/HR Insulin Glargine 20 units HS SC 07/05/25 22:00 Carvedilol 6.25 mg Q12HR PO 07/05/25 22:00 Furosemide 40 mg DAILY PO 07/05/25 11:00 07/05/25 12:17 40 MG Lisinopril 20 mg BID PO 07/05/25 11:00 07/05/25 12:17 20 MG Clopidogrel Bisulfate 75 mg DAILY PO 07/05/25 11:00 Aspirin 81 mg DAILY PO 07/06/25 10:00 Atorvastatin Calcium 40 mg HS PO 07/05/25 22:00 Examination General: Patient alert and oriented in person, place and time. Patient following commands. moderate distress HEENT: Normocephalic, atraumatic, moist mucous membranes Respiratory/pulmonary: Clear lungs bilaterally, vesicular murmurs present in almost all lung stokes, no associated crackles or wheezes. Cardiovascular: Normal heart sounds S1 and S2 with no associated murmurs Abdomen: Abdomen nondistended, there is no pain to palpation in any of the abdominal quadrants, no palpable masses. Extremities: 2+ peripheral edema present at the lower extremities, Right foot ulcer on dorsal surface of base of 1st metatarsal with black eschar, white discharge, Erythematous Peripheral Pulses: 3+ Radial (R). 3+ Radial (L). reduced pedal pulses Skin: No rashes or pruritus, there is no sacral edema present at this time. Neurological: Intact cranial nerves with no focal neurologic deficits laboratory and microbiology Laboratory Tests 07/05/25 04:45 Test 07/05/25 04:45 Range/Units Serum Glucose 165 H 74-106 mg/dL Labs and/or images reviewed: Labs reviewed by me, Image(s) reviewed by me Problem List/Assessment/Plan Problem List/Assessment/Plan # Acute right foot infection status post bite by unspecified organism Wound consult and cultures sent Podiatry consulted IV vancomycin and cefepime IVF # Uncontrolled type 2 DM with HbA1c 9.1 Continuously monitor with Accu-Chek Sliding scale Added Lantus 20 units HS # chronic hypoxic respiratory failure # HX CAD: Continue aspirin, clopidogrel # Chronic HFrEF: Ordered echo, ECG, resumed home medications as tolerated # hypertension: Continue home medication # ANGEL likely due to VMN on CKD -monitor lab -avoid nephrotoxic agents -IVF # hyperlipidemia: Continue atorvastatin # history of cervical cancer status post partial hysterectomy # hypothyroidism: TSH >150 Continue home meds levothyroxine 100mcg repeat TSH and free T4 # nicotine dependence # Chronic methamphetamine use - patient counseled on cessation of smoking, methamphetamine abuse for 13 minutes # History of of depression/ anxiety: Continue home meds # Morbid obesity: BMI 47.5 - counseled on lifestyle modifications, diet, exercise PUD prophylaxis: protonix DVT prophylaxis:on hold Goals of care: Full code, discussed for >16 minutes Plan discussed with patient Plan discussed with Dr Metcalf Plan discussed with: Patient My Orders My Orders Orders - RACHANA DWYER RESIDENT Procedure Category Date Status Time Carvedilol Tablet PHA 07/05/25 In Process (Coreg Tablet) 22:00 Furosemide Tablet PHA 07/05/25 In Process (Lasix Tablet) 11:00 Lisinopril Tablet PHA 07/05/25 In Process (Zestril Tablet) 11:00 Clopidogrel Bisulfate PHA 07/05/25 In Process (Plavix) 11:00 Aspirin Tablet PHA 07/06/25 In Process 10:00 Atorvastatin (Lipitor) PHA 07/05/25 In Process 22:00 Thyroid Stimulating LAB 07/06/25 Verified Hormone 04:00 Free T4 (Free LAB 07/06/25 Verified Thyroxine) 04:00 Consistent DIET 07/05/25 Transmitted Carb(Ccho)Diabetes Dinner Date of Service: Jul 05, 2025 Billing Provider: GINO HARRIS MD Common Visit Codes: [id number] INP/OBS CARE(HIGH) RACHANA DWYER RESIDENT Jul 05, 2025 19:12 LIANE SAMUELS RESIDENT Jul 05, 2025 19:45 GINO HARRIS MD Jul 07, 2025 22:28
[2025-07-05] MEDS: CARVEDILOL 3.125 MG TAB PO SCH (21:47)
[2025-07-05] MEDS ORDERED: LISINOPRIL 20 MG TAB PO SCH (22:00)
[2025-07-05] MEDS: INSULIN LANTUS (GLARGINE) 1 /0.01ml (100units/ml) SC SCH (22:38)
[2025-07-05] MEDS: ATORVASTATIN 20 MG TAB PO SCH (22:38)
[2025-07-06 01:00] VITALS: BP 132/84; PULSE 83; RESP 18; TEMP 96.8; O2SAT 93
[2025-07-06 05:00] VITALS: BP 106/59; PULSE 78; RESP 16; TEMP 96.8; O2SAT 94
[2025-07-06] MEDS: LEVOTHYROXINE SODIUM 100 MCG TAB PO SCH (06:00)
--- NOTE | 2025-07-06 06:37 | DVH ---
Bilateral Lower Extremity Arterial Duplex Clinical History: decreased pulses Comparison: None Technique: Duplex Doppler evaluation including color Doppler and spectral/pulsed waveform analysis of the lower extremity arteries was performed. Findings: RIGHT: Peak systolic velocities are less than 150 cm/sec. The waveforms are triphasic with diastolic flow. LEFT: Peak systolic velocities are as follows: [employer] 153 cm/s All of the velocities are less than 150 cm/sec. The waveforms are triphasic with diastolic flow. IMPRESSION: No hemodynamically significant stenosis based on peak systolic velocity criteria on the right. 20-49% stenosis of the left common femoral artery based on peak systolic velocity criteria. REFERENCE VALUES, [facility] ([facility]) vascular Imaging Lab Criteria: Peak systolic velocity rang es (in cm/sec) are as follows: <150 cm/s - <20 % stenosis 150-200 cm/s - 20-49% stenosis 200-300 cm/s - 50-75% stenosis >300 cm/s -> 75% stenosis
[2025-07-06 08:30] VITALS: BP 102/52; PULSE 77; RESP 18; TEMP 97.3; O2SAT 89
[2025-07-06] MEDS ORDERED: FUROSEMIDE 40 MG TAB PO SCH (10:00)
[2025-07-06] MEDS ORDERED: VANCOMYCIN 1.25GM/250ML 250 ML IV SCH (11:00)
[2025-07-06 12:30] VITALS: BP 130/69; PULSE 69; RESP 18; TEMP 97.7; O2SAT 93
[2025-07-06] MEDS: CEFEPIME 1GM/50ML 50 ML IV SCH (13:00)
--- NOTE | 2025-07-06 14:00 | DVHSR ---
APPROVED REPORT EXAM: Two-dimensional and M-mode echocardiogram with Doppler and color Doppler. Blood Pressure: 158/90 mmHg INDICATION Rule out structural heart disease RISK FACTORS Height: 65, Weight: 285 DIMENSIONS LVDd4.9 (3.8-5.7cm)LA (2D)4.5 (1.9-4.0cm)Aortic Root3.9 (2.0-3.7cm) LVDs4.1 (2.5-4.0cm)LA (MM) (1.9-4.0cm)Aortic Cusp Exc2.0 (1.5-2.0cm) EF (%) 35.0 (55-70%)Rt. Atrium4.0 (1.9-4.0cm)Asc. Aorta cm Mitral Valve MitralMitral Stenosis E wave1.07m/sMV Mean GR.3mmHg A wave0.71m/sMV Peak GR.48mmHg E/A ratio1.52D MVAcm2 DECEL [id number] 1/2 [id number] IVRTmsDop MVA3.92cm2 Aortic Valve Aortic ValveAortic Stenosis V10.64m/Katherine Mean GR.3mmHg V21.26m/Katherine Peak GR.6mmHg LVOT Diameter2.2 (1.8-2.4cm)Doppler AVA1.93cm2 AI P 1/2 Piuv105.05ms Pulmonic Valve V20.96m/s Tricuspid Valve TR Velocity2.53m/s [id number] Other Information Technically limited study due to body habitus. Conclusion Sinus rhythm. Concentric LVH. Left atrial enlargement. Aortic root enlargement. Valves appear to be structurally normal. Left ventricular function appears diminished. EF of approximately 35-40% with mild global hypokinesi s. Mild MR. Mild TR. Trace pulmonic insufficiency. Trace aortic insufficiency. No pericardial effusion masses or vegetations discernible.
--- NOTE | 2025-07-06 16:08 | DVHPNRES ---
Progress Note Date Seen: Jul 06, 2025 Resident Creating Document: RACHANA DWYER RESIDENT Medical Necessity Reason Pt with a Central, PICC or Fol: No Subjective Review of Systems This is a 55-year-old female with past medical history of insulin-dependent diabetes mellitus, COPD, CHF, hypertension, hyperlipidemia, [place], cervical cancer and thyroid disease. Patient came to the ER with a chief complaint of pain in the right foot secondary to an ulcer that has been there for almost 3 weeks. Patient mentions that she while cleaning her garage 3 weeks back, insect bit her foot post which an ulcer began to develop at the site. The patient was given oral antibiotics for the same, but there was no improvement seen in the wound. The patient describes the pain as a burning sensation, 8 on 10 in intensity. The patient states the pain is relieved with rest and aggravated by walking. Patient uses 2 L oxygen at home. Past medical history: CHF, COPD insulin-dependent diabetes mellitus, hypertension, hyperlipidemia, [place], cervical cancer, thyroid disease Past surgical history: partial hysterectomy, cholecystectomy, hernia repair, tonsillectomy Family history: family history of cancers Personal history: Patient smokes half a pack of cigarettes a day since 41 years, drinks occasionally, smokes methamphetamine Lives with: Family PCP: Constitutional: No: Fever, Chills, Sweats, Weakness, Malaise Eyes: No: Pain, Vision change, Conjunctivae inflammation, Eyelid inflammation, Other, Redness ENT: No: Ear pain, Ear discharge, Nose pain, Nose discharge, Nose congestion, Mouth pain, Mouth swelling, Throat pain, Throat swelling Respiratory: Shortness of breath; No: Cough, Dry, SOB with excertion, Wheezing, Hemoptysis, Pleuritic Pain, Sputum, Wheezing Cardiovascular: No: Chest Pain, Palpitations, Orthopnea, Paroxysmal Noc. Dyspnea, Edema, Lt Headedness Gastrointestinal: No: Nausea, Vomiting, Abdominal Pain, Diarrhea, Constipation, Melena, Hematochezia Genitourinary: No Dysuria, No Frequency, No Incontinence, No Hematuria, No Retention Musculoskeletal: foot pain; No: other, neck pain, shoulder pain, arm pain, back pain, hand pain, leg pain Skin: wound on right foot, Lesions, Jaundice, Bruising Neurological: No: Weakness, Numbness, Incoordination, Change in speech, Confusion, Seizures Allergies: Coded Allergies: Methylphenidate (Verified Allergy, Unknown, 08/14/24) Penicillins (Verified Allergy, Unknown, 08/14/24) General: Patient alert and oriented in person, place and time. Patient following commands. moderate distress HEENT: Normocephalic, atraumatic, moist mucous membranes Respiratory/pulmonary: Clear lungs bilaterally, vesicular murmurs present in almost all lung stokes, no associated crackles or wheezes. Cardiovascular: Normal heart sounds S1 and S2 with no associated murmurs Abdomen: Abdomen nondistended, there is no pain to palpation in any of the abdominal quadrants, no palpable masses. Extremities: 2+ peripheral edema present at the lower extremities, Right foot ulcer on dorsal surface of base of 1st metatarsal with black eschar, white discharge, Erythematous Peripheral Pulses: 3+ Radial (R). 3+ Radial (L). reduced pedal pulses Skin: No rashes or pruritus, there is no sacral edema present at this time. Neurological: Intact cranial nerves with no focal neurologic deficits 07/06- The patient was seen at bedside today. She complained of an episode of blood in the stools this morning. Stool occult blood sample was sent and came out positive. Gastro consult was placed for the same. The patient also complained of pain in the foot for which she was given Dilaudid. We are waiting for wound consult and Podiatry consult for the wound on the foot. Her urine drug screen came out positive for opiates and amphetamines. Echo was done today which showed concentric left ventricular hypertrophy and ejection fraction between 35 and 40% splint global hypokinesis. Duplex scan for lower extremity vessels was done which showed no hemodynamically significant stenosis based on peak systolic velocity criteria on the right and 20-49% stenosis of the left common femoral artery based on peak systolic velocity criteria. Objective vital signs Vital Sign Date Time Temp Pulse Resp B/P (MAP) Pulse Ox O2 Delivery O2 Flow Rate FiO2 07/06/25 12:30 97.7 69 18 130/69 (89) 93 97.7 07/06/25 08:00 Nasal Cannula* 2 28 Total Intake and Output 07/05/25 07/05/25 07/06/25 15:00 23:00 07:00 Intake Total 250 ml 150 ml 450 ml Balance 250 ml 150 ml 450 ml medications Current Medications Medications Dose Ordered Sig/Kathleen Route Start Time Stop Time Status Last Admin Dose Admin Acetaminophen 325 mg Q4HP PRN PO 07/04/25 22:30 Acetaminophen/ Hydrocodone Bitart 1 tab Q4HP PRN PO 07/04/25 22:30 Hold 07/06/25 09:29 1 TAB Ondansetron HCl 4 mg Q4HP PRN IV 07/04/25 22:30 07/05/25 21:52 4 MG Morphine Sulfate 2 mg Q4HPRN PRN IV 07/04/25 22:30 07/05/25 03:23 2 MG Vancomycin HCl 0 ml @ 0 mls/hr UD IV 07/05/25 01:15 Pantoprazole Sodium 40 mg DAILY@0600 PO 07/05/25 06:00 07/06/25 06:00 40 MG Diagnostic Test (Pha) 1 strip Q6HR 07/05/25 12:00 07/06/25 12:00 1 STRIP Insulin Human Regular Q6HR SC 07/05/25 12:00 07/06/25 11:53 4 UNITS Dextrose 50 ml UD PRN IV 07/05/25 07:15 Levothyroxine Sodium 100 mcg QAM@0600 PO 07/06/25 06:00 07/06/25 06:00 100 MCG Insulin Glargine 20 units HS SC 07/05/25 22:00 07/05/25 22:38 20 UNITS Carvedilol 6.25 mg Q12HR PO 07/05/25 22:00 07/06/25 10:24 6.25 MG Furosemide 40 mg DAILY PO 07/05/25 11:00 07/06/25 10:25 40 MG Lisinopril 20 mg BID PO 07/05/25 11:00 07/06/25 10:24 20 MG Clopidogrel Bisulfate 75 mg DAILY PO 07/05/25 11:00 07/06/25 09:28 75 MG Aspirin 81 mg DAILY PO 07/06/25 10:00 07/06/25 09:24 81 MG Atorvastatin Calcium 40 mg HS PO 07/05/25 22:00 07/05/25 22:38 40 MG Cefepime HCl 50 ml @ 12.5 mls/hr Q12H IV 07/06/25 13:00 Vancomycin HCl 250 ml @ 200 mls/hr Q12H IV 07/06/25 11:00 Hydromorphone HCl 0.5 mg Q4HPRN PRN IV 07/06/25 12:45 laboratory and microbiology Laboratory Tests 07/05/25 04:45 Test 07/05/25 04:45 Range/Units Serum Glucose 165 H 74-106 mg/dL Microbiology Date/Time Source Procedure Growth Status 07/05/25 13:55 Voided Urine Urine Culture - Preliminary Resulted 07/04/25 20:20 Blood Blood Culture - Preliminary NO GROWTH AFTER 24 HOURS OF INCUBATION. Resulted Labs and/or images reviewed: Labs reviewed by me, Image(s) reviewed by me Problem List/Assessment/Plan Problem List/Assessment/Plan Acute right foot infection status post bite by unspecified organism Wound consult and cultures sent Podiatry consulted IV vancomycin and cefepime IVF Uncontrolled type 2 DM with HbA1c 9.1 Continuously monitor with Accu-Chek Sliding scale Added Lantus 20 units HS chronic hypoxic respiratory failure HX CAD: Continue aspirin, clopidogrel Chronic HFrEF: echo showed Concentric LVH. Left atrial enlargement. Aortic root enlargement. Valves appear to be structurally normal. Left ventricular function appears diminished. EF of approximately 35-40% with mild global hypokinesis. Mild MR. Mild TR. Trace pulmonic insufficiency. Trace aortic insufficiency. No pericardial effusion masses or vegetations discernible. ECG, resumed home medications as tolerated #hypertension: Continue home medication ANGEL likely due to VMN on CKD -monitor lab -avoid nephrotoxic agents -IVF hyperlipidemia: Continue atorvastatin history of cervical cancer status post partial hysterectomy hypothyroidism: TSH >150 Continue home meds levothyroxine 100mcg repeat TSH and free T4 nicotine dependence Chronic methamphetamine use - patient counseled on cessation of smoking, methamphetamine abuse for 13 minutes History of of depression/ anxiety: Continue home meds Morbid obesity: BMI 47.5 - counseled on lifestyle modifications, diet, exercise PUD prophylaxis: protonix DVT prophylaxis:on hold Goals of care: Full code, discussed for >16 minutes Plan discussed with patient Plan discussed with Dr Metcalf Plan discussed with: Patient My Orders My Orders Orders - RACHANA DWYER RESIDENT Procedure Category Date Status Time Consistent DIET 07/05/25 Transmitted Carb(Ccho)Diabetes Dinner Basic Metabolic Panel LAB 07/06/25 Logged 04:00 Bilat Low Ext Art US 07/05/25 Resulted Duplex 19:40 *Consult Dr. Daigle CONS 07/06/25 Transmitted Gilbert 11:19 Complete Blood Count LAB 07/06/25 Logged 12:00 Hydromorphone PHA 07/06/25 In Process Injection (Dilaudid 12:45 Cleanse Wound With ROBERT 07/06/25 In Process Wound Clean 10:18 * Dietary Consult CONS 07/06/25 Transmitted 15:39 Date of Service: Jul 06, 2025 Billing Provider: GINO HARRIS MD Common Visit Codes: [id number] INP/OBS CARE(HIGH) RACHANA DWYER RESIDENT Jul 06, 2025 16:08 GINO HARRIS MD Jul 07, 2025 22:37
[2025-07-06 17:30] VITALS: BP 118/46; PULSE 83; RESP 16; TEMP 98.2; O2SAT 95
[2025-07-06 18:52] LABS: Hematocrit 43.5 % (36.0-46.0); Hemoglobin 14.7 g/dL (12.2-16.2); Mean Corpuscular Hemoglobin 30.6 pg (28.0-32.0); Mean Corpuscular Volume 90.5 fL (80.0-100.0); Nucleated Red Blood Cells % 0.1 %
[2025-07-06 18:56] LABS: Chloride 99 mmol/L (98-107); Sodium 138 mmol/L (136-145)
[2025-07-06 18:57] LABS: Anion Gap 6 (5-15); Calcium 9.3 mg/dL (8.7-10.4)
[2025-07-06 19:05] LABS: BUN/Creatinine Ratio 12.0 (10.0-20.0)
[2025-07-06 19:06] LABS: Blood Urea Nitrogen 22 mg/dL (9-23); Carbon Dioxide 33 mmol/L (20-31); Glucose 127 mg/dL (74-106); Potassium 4.8 mmol/L (3.5-5.1)
[2025-07-06 21:00] VITALS: BP 125/68; PULSE 77; RESP 19; TEMP 96.4; O2SAT 100
[2025-07-06] MEDS: HYDROmorphone HCL 2 MG/ML VL/or syr IV PRN (21:14)
[2025-07-06] MEDS: VANCOMYCIN 1.25GM/250ML 250 ML IV SCH (23:24)
[2025-07-07 01:00] VITALS: BP 120/55; PULSE 74; RESP 15; TEMP 95.5; O2SAT 95
[2025-07-07 05:00] VITALS: BP 114/53; PULSE 80; RESP 17; TEMP 97.7; O2SAT 99
[2025-07-07 09:00] VITALS: BP 98/65; PULSE 97; RESP 19; TEMP 97.5; O2SAT 93
[2025-07-07] MEDS: PANTOPRAZOLE 40 MG/10 ML VIAL INJ IV ONE ×2 (09:46→09:53)
[2025-07-07] MEDS: EMPAGLIFLOZIN 10 MG TAB PO SCH (09:49)
[2025-07-07] MEDS: SPIRONOLACTONE 25 MG TAB PO ONE ×2 (09:49→09:53)
--- NOTE | 2025-07-07 10:48 | DVHPNRES ---
Progress Note Date Seen: Jul 07, 2025 Resident Creating Document: MICHAEL RAMOS RESIDENT Medical Necessity Reason Pt with a Central, PICC or Fol: No Subjective Review of Systems This is a 55-year-old female with past medical history of insulin-dependent diabetes mellitus, COPD, CHF, hypertension, hyperlipidemia, RI, cervical cancer and thyroid disease. Patient came to the ER with a chief complaint of pain in the right foot secondary to an ulcer that has been there for almost 3 weeks. Patient mentions that she while cleaning her garage 3 weeks back, insect bit her foot post which an ulcer began to develop at the site. The patient was given oral antibiotics for the same, but there was no improvement seen in the wound. The patient describes the pain as a burning sensation, 8 on 10 in intensity. The patient states the pain is relieved with rest and aggravated by walking. Patient uses 2 L oxygen at home. Past medical history: CHF, COPD insulin-dependent diabetes mellitus, hypertension, hyperlipidemia, RI, cervical cancer, thyroid disease Past surgical history: partial hysterectomy, cholecystectomy, hernia repair, tonsillectomy Family history: family history of cancers Personal history: Patient smokes half a pack of cigarettes a day since 41 years, drinks occasionally, smokes methamphetamine Lives with: Family PCP: Patient was seen today at bedside. Labs and chart reviewed. Patient with leukocytosis, no acute fever or dysuria. No acute complaint. Patient is on IV antibiotic cefepime and vancomycin for right foot wound infection. Tolerating well. Pending podiatry consult. Patient is a HFrEF, EF 35-40%, started on Jardiance and spironolactone. Objective vital signs Vital Sign Date Time Temp Pulse Resp B/P (MAP) Pulse Ox O2 Delivery O2 Flow Rate FiO2 07/07/25 10:07 65 18 99/89 07/07/25 05:00 97.7 99 97.7 07/06/25 20:00 Nasal Cannula* 2 28 Total Intake and Output 07/06/25 07/06/25 07/07/25 15:00 23:00 07:00 Intake Total 1100 ml Balance 1100 ml medications Current Medications Medications Dose Ordered Sig/Kathleen Route Start Time Stop Time Status Last Admin Dose Admin Acetaminophen 325 mg Q4HP PRN PO 07/04/25 22:30 Acetaminophen/ Hydrocodone Bitart 1 tab Q4HP PRN PO 07/04/25 22:30 Hold 8/30/25 09:29 1 TAB Ondansetron HCl 4 mg Q4HP PRN IV 07/04/25 22:30 07/05/25 21:52 4 MG Morphine Sulfate 2 mg Q4HPRN PRN IV 07/04/25 22:30 07/05/25 03:23 2 MG Vancomycin HCl 0 ml @ 0 mls/hr UD IV 07/05/25 01:15 Diagnostic Test (Pha) 1 strip Q6HR 07/05/25 12:00 07/07/25 06:03 1 STRIP Insulin Human Regular Q6HR SC 07/05/25 12:00 07/07/25 06:09 3 UNITS Dextrose 50 ml UD PRN IV 07/05/25 07:15 Levothyroxine Sodium 100 mcg QAM@0600 PO 07/06/25 06:00 07/07/25 05:55 100 MCG Insulin Glargine 20 units HS SC 07/05/25 22:00 07/06/25 21:53 20 UNITS Carvedilol 6.25 mg Q12HR PO 07/05/25 22:00 07/06/25 21:15 6.25 MG Furosemide 40 mg DAILY PO 07/05/25 11:00 07/07/25 09:51 40 MG Lisinopril 20 mg BID PO 07/05/25 11:00 07/06/25 21:15 20 MG Clopidogrel Bisulfate 75 mg DAILY PO 07/05/25 11:00 07/07/25 09:50 75 MG Aspirin 81 mg DAILY PO 07/06/25 10:00 07/07/25 09:49 81 MG Atorvastatin Calcium 40 mg HS PO 07/05/25 22:00 07/06/25 21:20 40 MG Cefepime HCl 50 ml @ 12.5 mls/hr Q12H IV 07/06/25 13:00 07/07/25 02:03 12.5 MLS/HR Hydromorphone HCl 0.5 mg Q4HPRN PRN IV 07/06/25 12:45 07/07/25 10:07 0.5 MG Vancomycin HCl 250 ml @ 200 mls/hr Q12H IV 07/06/25 22:15 07/07/25 09:47 200 MLS/HR Pantoprazole Sodium 40 mg DAILY IV 07/08/25 10:00 Empaglifozin 10 mg DAILY PO 07/07/25 10:00 07/07/25 09:49 10 MG Spironolactone 25 mg DAILY PO 07/08/25 10:00 Examination General: Patient alert and oriented in person, place and time. HEENT: Normocephalic, atraumatic, moist mucous membranes Respiratory/pulmonary: Clear lungs bilaterally, vesicular murmurs present in almost all lung stokes, no associated crackles or wheezes. Cardiovascular: Normal heart sounds S1 and S2 with no associated murmurs Abdomen: Abdomen nondistended, there is no pain to palpation in any of the abdominal quadrants, no palpable masses. Extremities: 2+ peripheral edema present at the lower extremities, Right foot ulcer on dorsal surface of base of 1st metatarsal with black eschar, white discharge, Erythematous Peripheral Pulses: 3+ Radial (R). 3+ Radial (L). reduced pedal pulses Skin: No rashes or pruritus, there is no sacral edema present at this time. Neurological: Intact cranial nerves with no focal neurologic deficits laboratory and microbiology Laboratory Tests 07/06/25 18:26 Test 07/06/25 18:26 Range/Units Serum Glucose 127 H 74-106 mg/dL Microbiology Date/Time Source Procedure Growth Status 07/05/25 13:55 Voided Urine Urine Culture - Preliminary Resulted 07/04/25 20:20 Blood Blood Culture - Preliminary NO GROWTH AFTER 48 HOURS OF INCUBATION. Resulted Problem List/Assessment/Plan Problem List/Assessment/Plan Acute right foot infection status post bite by unspecified organism Wound consult and cultures sent -blood culture negative -pending Podiatry consulted IV vancomycin and cefepime -monitor CBC, BMP Uncontrolled type 2 DM with HbA1c 9.1 Continuously monitor with Accu-Chek Sliding scale Added Lantus 20 units HS # CAD -continue aspirin 81 mg p.o. daily -continue Plavix 75 mg p.o. daily -continue atorvastatin 40 mg p.o. q.h.s. -continue lisinopril 20 mg p.o. daily -continue carvedilol 6.25 mg p.o. b.i.d. #chronic hypoxic respiratory failure Chronic HFrEF: LVEF, no acute exacerbation -Echo showed Concentric LVH. Left atrial enlargement. Aortic root enlargement. EF of approximately 35-40% with mild global hypokinesis. -ECG, resumed home medications as tolerated -continue carvedilol 6.25 mg p.o. b.i.d. -Lasix 40 mg IV daily -lisinopril 20 mg p.o. daily -Jardiance 10 mg p.o. daily -spironolactone 25 mg p.o. daily -strict intake output chart #hypertension: Continue home medication ANGEL likely due to VMN on CKD -monitor BMP -avoid nephrotoxic agents hyperlipidemia: Continue atorvastatin # leukocytosis -continue monitoring CBC -continue current antibiotic due to wound infection # peripheral arterial disease -Doppler study of the lower [id number]% stenosis of the left common femoral artery -continue aspirin and atorvastatin as prescribed history of cervical cancer status post partial hysterectomy hypothyroidism: TSH >150 Continue home meds levothyroxine 100mcg repeat TSH and free T4 nicotine dependence Chronic methamphetamine use - patient counseled on cessation of smoking, methamphetamine abuse for 13 minutes History of of depression/ anxiety: Continue home meds Morbid obesity: BMI 47.5 - counseled on lifestyle modifications, diet, exercise PUD prophylaxis: protonix DVT prophylaxis:on hold Goals of care: Full code, discussed for >16 minutes Plan discussed with patient Plan discussed with Dr Metcalf Plan discussed with: Patient, Other (RN) My Orders My Orders Orders - MICHAEL RAMOS Procedure Category Date Status Time Empagliflozin PHA 07/07/25 In Process (Jardiance) 10:00 Pantoprazole PHA 07/08/25 In Process (Protonix) 10:00 Spironolactone PHA 07/08/25 In Process (Aldactone) 10:00 Date of Service: Jul 07, 2025 Billing Provider: GINO HARRIS MD Common Visit Codes: [id number] INP/OBS CARE(HIGH) MICHAEL RAMOS Jul 07, 2025 10:47 GINO HARRIS MD Jul 07, 2025 22:40
[2025-07-07 13:00] VITALS: BP 102/46; PULSE 72; RESP 18; TEMP 96.9; O2SAT 91
[2025-07-07 17:00] VITALS: BP 98/47; PULSE 45; RESP 19; TEMP 96.4; O2SAT 94
--- NOTE | 2025-07-07 20:52 | DVHINCON2 ---
Date of service: Jul 07, [address] Del Valle Reason for Consultation Rectal bleeding and Heme positive stools History of Present Illness Steffanie Faulkner is a 55-year-old female with She presents to the ED with complaints of right foot pain secondary to an ulcer that has been present for approximately three weeks. patient reports that the ulcer began after an insect bite while cleaning her garage. Despite taking antibiotics, the wound has not improved. She describes the pain as burning and itching in nature, rated 8/10 in intensity, worsened by walking and relieved with rest. The ulcer is noted to be black in color with white discharge. On arrival patient was septic due to wound infection. Patient normally uses 2 L oxygen at home. Patient will be admitted for further management. GI was consulted because patient reported rectal bleeding. Her stools were Hemoccult positive. Her hemoglobin is stable at 14.7. Patient stated she has not had any prior colonoscopy and would like to get a colonoscopy Past Medical History past medical history of insulin-dependent diabetes mellitus, congestive heart failure, chronic obstructive pulmonary disease, hypertension, hyperlipidemia, myocardial infarction, cervical cancer, and thyroid disease. Past Surgical History Past surgical history: partial hysterectomy, cholecystectomy, hernia repair, tonsillectomy Family History: FH: cancer G8 MOTHER G8 FATHER Family History Family history: family history of cancers Social History Personal history: Patient smokes half a pack of cigarettes a day since 41 years, drinks occasionally, smokes methamphetamine Lives with: Family PCP: Allergies: Coded Allergies: Methylphenidate (Verified Allergy, Unknown, 08/14/24) Penicillins (Verified Allergy, Unknown, 08/14/24) Home Meds Active Scripts Carvedilol (Carvedilol) 6.25 Mg Tab, 1 TAB PO BID for 100 Days, #200 TAB Prov:TRACI HOGAN MD 08/16/24 Aspirin (Aspirin Low Dose) 81 Mg Chw, 1 TAB PO DAILY for 60 Days, #60 TAB.CHEW Prov:TRACI HOGAN MD 08/16/24 Lisinopril (Lisinopril) 20 Mg Tab, 1 TAB PO BID for 45 Days, #90 TAB Prov:TRACI HOGAN MD 08/16/24 Levothyroxine Sodium (Levothyroxine Sodium) 100 Mcg Tab, 1 TAB PO QAM for 60 Days, #60 TAB Prov:TRACI HOGAN MD 08/16/24 Albuterol Sulfate (Albuterol Sulfate Hfa) 108 Mcg/Act Aer, 1 PUFF INH Q6HP PRN for SHORTNESS OF BREATH OR WHEEZIN for 30 Days, #8.5 AER Prov:TRACI HOGAN MD 08/16/24 Bupropion Hcl (Bupropion Hcl Er) 100 Mg Tab, 1 TAB PO BID for 14 Days, #28 TAB Prov:TRACI HOGAN MD 08/16/24 Fluticasone-Salmeterol (Advair Diskus 250/50) 1 Puff Ih, 1 PUFF INH BID for 30 Days, #60 INH Prov:TRACI HOGAN MD 08/16/24 Atorvastatin Calcium (ATORVASTATIN CALCIUM) 40 Mg Tab, 1 TAB PO QPM, #90 TAB 3 Refills Prov:TRACI HOGAN MD 08/16/24 Furosemide (Furosemide) 40 Mg Tab, 40 MG PO DAILY for 30 Days, #30 TAB Prov:TRACI HOGAN MD 08/16/24 Potassium Chloride (POTASSIUM CHLORIDE CR) 10 Meq Tb, 10 MEQ PO DAILY for 30 Days, #30 TAB Prov:TRACI HOGAN MD 08/16/24 Clopidogrel Bisulfate (CLOPIDOGREL) 75 Mg Tab, 75 MG PO DAILY for 30 Days, MG Prov:TRACI HOGAN MD 08/16/24 Current Medications Current Medications Medications (Trade) Dose Ordered Sig/Kathleen Route PRN Reason Start Time Stop Time Status Last Admin Vancomycin HCl 250 ml @ 200 mls/hr Q12H IV 07/06/25 22:15 07/07/25 15:34 DC 07/07/25 09:47 Pantoprazole Sodium (Protonix) 40 mg DAILY IV 07/08/25 10:00 Empaglifozin (Jardiance) 10 mg DAILY PO 07/07/25 10:00 07/07/25 09:49 Spironolactone (Aldactone) 25 mg DAILY PO 07/08/25 10:00 Lisinopril (Zestril Tablet) 20 mg DAILY PO 07/08/25 10:00 Vancomycin HCl 250 ml @ 200 mls/hr Q12H IV 07/07/25 22:00 Vital Signs Vital Signs Date Time Temp Pulse Resp B/P (MAP) Pulse Ox O2 Delivery O2 Flow Rate FiO2 07/07/25 17:00 96.4 45 19 98/47 (64 94 96.4 07/06/25 20:00 Nasal Cannula* 2 28 Physical Exam General: Patient alert and oriented in person, place and time. HEENT: Normocephalic, atraumatic, moist mucous membranes Respiratory/pulmonary: Clear lungs bilaterally, vesicular murmurs present in almost all lung stokes, no associated crackles or wheezes. Cardiovascular: Normal heart sounds S1 and S2 with no associated murmurs Abdomen: Abdomen nondistended, there is no pain to palpation in any of the abdominal quadrants, no palpable masses.;obese Extremities: 2+ peripheral edema present at the lower extremities, Right foot ulcer on dorsal surface of base of 1st metatarsal with black eschar, white discharge, Erythematous Neurological: Intact cranial nerves with no focal neurologic deficits Labs/Diagnostic Data Labs Test 07/07/25 17:05 07/06/25 18:26 07/06/25 07:40 07/05/25 13:55 Range/Units POC Glucose 151 H 70-106 mg/dl White Blood Count 14.8 #H 4.4-10.8 10^3/uL Red Blood Count 4.80 4.0-5.20 10^6/uL Hemoglobin 14.7 12.2-16.2 g/dL Hematocrit 43.5 36.0-46.0 % Mean Corpuscular Volume 90.5 80.0-100.0 fL Mean Corpuscular Hemoglobin 30.6 28.0-32.0 pg Mean Corpuscular Hemoglobin Concent 33.8 32.0-36.0 g/dL Red Cell Distribution Width 15.6 H 11.8-14.3 % Platelet Count 321 140-450 10^3/uL Mean Platelet Volume 8.8 6.9-10.8 fL Neutrophils (%) (Auto) 80.8 H 37.0-80.0 % Lymphocytes (%) (Auto) 10.2 10.0-50.0 % Monocytes (%) (Auto) 5.7 0.0-12.0 % Eosinophils (%) (Auto) 2.6 0.0-7.0 % Basophils (%) (Auto) 0.7 0.0-2.0 % Neutrophils # (Auto) 11.9 H 1.6-8.6 10 ^3/uL Lymphocytes # (Auto) 1.5 0.4-5.4 10 ^3/uL Monocytes # (Auto) 0.8 0-1.3 10 ^3/uL Eosinophils # (Auto) 0.4 0-0.8 10 ^3/uL Basophils # (Auto) 0.1 0-0.2 10 ^3/uL Nucleated Red Blood Cells 0.1 % Sodium Level 138 136-145 mmol/L Potassium Level 4.8 3.5-5.1 mmol/L Chloride Level 99 98-107 mmol/L Carbon Dioxide Level 33 H 20-31 mmol/L Anion Gap 6 5-15 Blood Urea Nitrogen 22 9-23 mg/dL Creatinine 1.84 #H 0.550-1.02 mg/dL Glomerular Filtration Rate Calc 32 >90 mL/min BUN/Creatinine Ratio 12.0 10.0-20.0 Serum Glucose 127 H 74-106 mg/dL Calcium Level 9.3 8.7-10.4 mg/dL Thyroid Stimulating Hormone (TSH) > 150.00 H 0.55-4.78 uIU/mL Stool Occult Blood Positive Negative Stool Occult Blood Sample #3 Negative Urine Color Yellow Yellow Urine Clarity Turbid H Clear Urine pH 5.5 5.0-9.0 Urine Specific [place] 1.027 1.001-1.035 Urine Protein Trace H Negative Urine Ketones Negative Negative Urine Blood Negative Negative /uL Urine Nitrite Negative Negative Urine Bilirubin Negative Negative Urine Urobilinogen Normal Negative mg/dL Urine Leukocyte Esterase Negative Negative /uL Urine RBC 2 0 - 4 /hpf Urine Microscopic WBC 5 0-5 /HPF Urine Squamous Epithelial Cells Few <5 /hpf Urine Calcium Oxalate Crystals Many None Seen Urine Bacteria None seen None Seen /hpf Urine Hyaline Casts Mod 0 - 2 /lpf Urine Mucus Few None Seen Urine Glucose Normal Normal mg/dL Urine Opiates Screen Pos NEGATIVE Urine Fentanyl Screen Neg NEGATIVE Urine Barbiturates Screen Neg NEGATIVE Urine Phencyclidine Screen Neg NEGATIVE Urine Amphetamines Screen Pos NEGATIVE Urine Benzodiazepines Screen Neg NEGATIVE Urine Cocaine Screen Neg NEGATIVE Urine Cannabinoids Screen Neg NEGATIVE Test 07/05/25 05:00 07/05/25 04:45 07/04/25 20:20 Range/Units Lactic Acid Level 1.4 0.4-2.0 mmol/L Erythrocyte Sedimentation Rate 10 0-20 mm/hr Total Bilirubin 0.4 0.2-1.0 mg/dL Aspartate Amino Transferase (AST) 32 13-40 U/L Alanine Aminotransferase (ALT) 29 7-40 U/L Alkaline Phosphatase 87 46-116 U/L C-Reactive Protein High Sensitivity 0.43 <1.0 mg/dL B-Type Natriuretic Peptide 53.73 0-100 pg/mL Total Protein 7.2 5.7-8.2 g/dL Albumin 4.4 3.2-4.8 g/dL Prothrombin Time 11.4 9.3-11.8 sec Prothrombin Time INR 1.08 0.9-1.15 Activated Partial Thromboplast Time 25.6 24.5-34.5 SEC Hemoglobin A1c 9.3 H <5.7 % A1C Microbiology Date/Time Source Procedure Growth Status 07/06/25 10:28 Toe Right (Big) Gram Stain - Final Resulted 07/06/25 10:28 Toe Right (Big) Wound Culture - Preliminary Resulted 07/05/25 13:55 Voided Urine Urine Culture - Preliminary Resulted 07/04/25 20:20 Blood Blood Culture - Preliminary NO GROWTH AFTER 72 HOURS OF INCUBATION. Resulted Duplex IMPRESSION: Low lung volumes. No acute cardiopulmonary disease. Problems(with codes): (1) Heme positive stool (2) Rectal bleeding (3) Puncture wound of foot excluding toes with infection (4) Uncontrolled diabetes mellitus (5) Acute respiratory failure Plan/Recommendation Plan Patient appears to be hemodynamically stable and her H and H is also stable At this time I would recommend medical stabilization from a sepsis infection and focus on wound healing I will be available for a colonoscopy once the patient is medically stabilized or this can be arranged electively as an outpatient We will continue to monitor labs Plan discussed with: Patient SABINA GRANT MD Jul 07, 2025 20:52
[2025-07-07 21:14] VITALS: BP 126/60; PULSE 87; RESP 17; TEMP 98.2; O2SAT 96
[2025-07-07] MEDS: VANCOMYCIN 1.25GM/250ML 250 ML IV SCH (22:01)
[2025-07-08 05:00] VITALS: BP 104/69; PULSE 84; RESP 20; TEMP 98.7; O2SAT 95
[2025-07-08 08:45] VITALS: BP 102/59; PULSE 78; RESP 18; TEMP 98.1; O2SAT 96
[2025-07-08] MEDS ORDERED: LISINOPRIL 20 MG TAB PO SCH (10:00)
[2025-07-08] MEDS: PANTOPRAZOLE 40 MG/10 ML VIAL INJ IV SCH (10:55)
[2025-07-08] MEDS ORDERED: VANCOMYCIN PER PHARMACY 0 MG IV SCH (11:30)
[2025-07-08] MEDS ORDERED: SODIUM CHLORIDE 0.9% 250 ML IV ONE (11:30)
--- NOTE | 2025-07-08 12:08 | DVHPN2 ---
Progress Note Date Seen: Jul 08, 2025 Resident Creating Document: NADER LATHAM RESIDENT Medical Necessity Reason Pt with a Central, PICC or Fol: No Subjective Review of Systems Patient is a 55-year-old female with past medical history of type 2 diabetes, CHF, COPD, hypertension, dyslipidemia, PR, cervical cancer, thyroid disease, who comes in due to right foot pain. However, patient notes she has also been experiencing constipation along with bright red blood per rectum for the last 2 days, 2 episodes noted. Patient notes he had similar symptoms once before but did not have it worked up. CT abdomen pelvis shows Limited evaluation without contrast. Bowel wall thickening of the descending colon with surrounding stranding, likely representing colitis. Other considerations include inflammatory bowel disease.Cirrhotic morphology liver, hepatic steatosis, splenomegaly.Left hepatic lobe hypodense lesion measuring 2.1 cm, incompletely characterized. Recommend multiphasic MRI abdomen with and without contrast.Atherosclerotic disease.Cholecystectomy. Patient seen and examined at bedside, currently notes constipation Stool occult blood positive Objective vital signs Vital Sign Date Time Temp Pulse Resp B/P (MAP) Pulse Ox O2 Delivery O2 Flow Rate FiO2 07/08/25 08:45 98.1 78 18 102/59 (73) 96 98.1 07/07/25 20:00 Nasal Cannula* 2 28 Total Intake and Output 07/07/25 07/07/25 07/08/25 15:00 23:00 07:00 Intake Total 900 ml 118 ml Balance 900 ml 118 ml medications Current Medications Medications Dose Ordered Sig/Kathleen Route Start Time Stop Time Status Last Admin Dose Admin Acetaminophen 325 mg Q4HP PRN PO 07/04/25 22:30 Acetaminophen/ Hydrocodone Bitart 1 tab Q4HP PRN PO 07/04/25 22:30 Hold 07/06/25 09:29 1 TAB Ondansetron HCl 4 mg Q4HP PRN IV 07/04/25 22:30 07/05/25 21:52 4 MG Morphine Sulfate 2 mg Q4HPRN PRN IV 07/04/25 22:30 07/05/25 03:23 2 MG Diagnostic Test (Pha) 1 strip Q6HR 07/05/25 12:00 07/08/25 11:41 1 STRIP Insulin Human Regular Q6HR SC 07/05/25 12:00 07/08/25 05:35 3 UNITS Dextrose 50 ml UD PRN IV 07/05/25 07:15 Levothyroxine Sodium 100 mcg QAM@0600 PO 07/06/25 06:00 07/08/25 05:37 100 MCG Insulin Glargine 20 units HS SC 07/05/25 22:00 07/07/25 22:03 20 UNITS Carvedilol 6.25 mg Q12HR PO 07/05/25 22:00 07/07/25 22:01 6.25 MG Furosemide 40 mg DAILY PO 07/05/25 11:00 07/07/25 09:51 40 MG Clopidogrel Bisulfate 75 mg DAILY PO 07/05/25 11:00 07/07/25 09:50 75 MG Aspirin 81 mg DAILY PO 07/06/25 10:00 07/07/25 09:49 81 MG Atorvastatin Calcium 40 mg HS PO 07/05/25 22:00 07/07/25 22:00 40 MG Cefepime HCl 50 ml @ 12.5 mls/hr Q12H IV 07/06/25 13:00 07/08/25 01:10 12.5 MLS/HR Hydromorphone HCl 0.5 mg Q4HPRN PRN IV 07/06/25 12:45 07/08/25 05:37 0.5 MG Pantoprazole Sodium 40 mg DAILY IV 07/08/25 10:00 07/08/25 10:55 40 MG Empaglifozin 10 mg DAILY PO 07/07/25 10:00 07/07/25 09:49 10 MG Spironolactone 25 mg DAILY PO 07/08/25 10:00 Vancomycin HCl 0 ml @ 0 mls/hr UD IV 07/08/25 11:30 UNV Examination General Appearance: Cooperative. Well developed. Well nourished. NAD Pulmonary/Respiratory: Chest non-tender. Clear bilateral breath sounds, no crackles, no wheezing. Cardiovascular/Chest: Regular rate and rhythm. No murmurs. No JVD. Abdominal Exam: Normal bowel sounds. Soft. normal abdomen, no visible veins, Nontender. No hepatospenomegaly. No masses Lower extremities: 2+ lower extremity edema noted. Ulcer noted on the right lower extremity, dorsal aspect. Neuro/Mental Status: A&O x4. Coherent. Thoughts/Psych: Normal thought pattern. Appropriate mood and affect. Good judgement and insight Skin Exam: Normal inspection. Normal color. Warm. Dry laboratory and microbiology Laboratory Tests 07/06/25 18:26 Test 07/06/25 18:26 Range/Units Serum Glucose 127 H 74-106 mg/dL Microbiology Date/Time Source Procedure Growth Status 07/06/25 10:28 Toe Right (Big) Gram Stain - Final Resulted 07/06/25 10:28 Toe Right (Big) Wound Culture - Preliminary Resulted 07/05/25 13:55 Voided Urine Urine Culture - Preliminary Resulted 07/04/25 20:20 Blood Blood Culture - Preliminary NO GROWTH AFTER 72 HOURS OF INCUBATION. Resulted Labs and/or images reviewed: Labs reviewed by me, Image(s) reviewed by me Problem List/Assessment/Plan Problem List/Assessment/Plan Rectal bleeding Probable liver cirrhosis, compensated Colitis versus inflammatory bowel disease Left hepatic lobe hypodense lesion 2.1 cm Right lower extremity ulcer Hospital sepsis due to above Plan: Stable H&H Ordered CEA, AFP Hepatitis panel MONET We will evaluate tomorrow for probable colonoscopy tentatively on Tuesday Recommend starting clear liquid diet tomorrow Thank you so much for the opportunity to consult on your patient. GI team will follow the patient. In case of any questions or concerns please feel free to reach out. Plan discussed with Dr. Hunt Plan discussed with: Patient, Other My Orders My Orders Orders - NADER LATHAM RESIDENT Procedure Category Date Status Time Complete Blood Count LAB 07/08/25 Logged 12:06 Comprehensive LAB 07/08/25 Logged Metabolic Panel 12:06 Dietary Evaluation Review Comments: 1) Add cardiac restriction to 60g CCHO diet 2) Initiate Filippo @ 1 pk bid 3) Initiate MVI @ 1 tb qd 4) Initiate Vitamin C @ 500 mg bid and zinc sulfate @ 220 mg for 7 days 5) Refer to outpatient RD/[facility] for diabetes education and weight management 6) Follow-up with podiatry 7) Follow-up with clinical social work therapist r/t polysubstance abuse 8) Continue to monitor I&O, labs, and skin integrity Expected Outcomes/Goals: 1) appetite and labs to improve 2) wound to improve 3) gradual wt loss 4) f/u in 3-5 days NADER LATHAM Jul 08, 2025 12:08
[2025-07-08 12:54] VITALS: BP 104/54; PULSE 82; RESP 18; TEMP 98.4; O2SAT 95
--- NOTE | 2025-07-08 12:58 | DVH ---
Indication: GI bleeding abd pain Technique: CT axial images of the abdomen and pelvis are obtained without contrast. Coronal and sagit saman reformats were obtained. Radiation Dose Information: CTDI volume is 22.11 mGy. Dose-length product is 1400.94 mGy*cm Comparison: None FINDINGS: There is limited interpretation of the abdomen and pelvis without administration of intravenous contr ast. Lung bases demonstrate ground-glass opacities. Cardiomegaly. Adrenal glands unremarkable in shape. Spleen measures 13.8 cm. Hepatic steatosis. Cirrhotic morphology liver. Hepatomegaly. Left hepatic lobe hypodense lesion cayla suring 2.1 cm. The kidneys demonstrate no hydronephrosis / nephrolithiasis. Stomach is relatively nondistended. Small bowel loops are normal in caliber. Colonic diverticular disease. Bowel wall thickening of the splenic flexure, descending colon with whitley rounding stranding. Moderate volume stool within the more proximal colon. Normal appendix. Abdominal aortic atherosclerotic disease. Bladder partially distended. No free pelvic fluid. No ingu inal lymphadenopathy. Bladder partially distended. No free pelvic fluid. No inguinal lymphadenopathy Mild thoracolumbar degenerative disc. IMPRESSION: Limited evaluation without contrast. Bowel wall thickening of the descending colon with surrounding stranding, likely representing colitis . Other considerations include inflammatory bowel disease. Cirrhotic morphology liver, hepatic steatosis, splenomegaly. Left hepatic lobe hypodense lesion measuring 2.1 cm, incompletely characterized. Recommend multiphas ic MRI abdomen with and without contrast. Atherosclerotic disease. Cholecystectomy. Other findings as described
[2025-07-08] MEDS: SPIRONOLACTONE 25 MG TAB PO SCH (12:59)
[2025-07-08 13:33] LABS: Hematocrit 42.9 % (36.0-46.0); Hemoglobin 13.9 g/dL (12.2-16.2); Mean Corpuscular Hemoglobin 30.3 pg (28.0-32.0); Mean Corpuscular Volume 93.2 fL (80.0-100.0); Nucleated Red Blood Cells % 0.0 %
[2025-07-08 14:23] LABS: Alanine Aminotransferase 30 U/L (7-40); Albumin 4.5 g/dL (3.2-4.8); Alkaline Phosphatase 92 U/L (46-116); Anion Gap 8 (5-15); BUN/Creatinine Ratio 17.2 (10.0-20.0); Bilirubin, Total 0.5 mg/dL (0.2-1.0); Calcium 8.8 mg/dL (8.7-10.4); Carbon Dioxide 29 mmol/L (20-31); Chloride 98 mmol/L (98-107); Magnesium 2.2 mg/dL (1.6-2.6); Potassium 4.6 mmol/L (3.5-5.1); Total Protein 7.0 g/dL (5.7-8.2)
[2025-07-08 14:25] LABS: Blood Urea Nitrogen 23 mg/dL (9-23); Glucose 126 mg/dL (74-106); Sodium 135 mmol/L (136-145)
--- NOTE | 2025-07-08 15:17 | DVHPNRES ---
Progress Note Date Seen: Jul 08, 2025 Resident Creating Document: RACHANA DWYER RESIDENT Medical Necessity Reason Pt with a Central, PICC or Fol: No Subjective Review of Systems This is a 55-year-old female with past medical history of insulin-dependent diabetes mellitus, COPD, CHF, hypertension, hyperlipidemia, MA, cervical cancer and thyroid disease. Patient came to the ER with a chief complaint of pain in the right foot secondary to an ulcer that has been there for almost 3 weeks. Patient mentions that she while cleaning her garage 3 weeks back, insect bit her foot post which an ulcer began to develop at the site. The patient was given oral antibiotics for the same, but there was no improvement seen in the wound. The patient describes the pain as a burning sensation, 8 on 10 in intensity. The patient states the pain is relieved with rest and aggravated by walking. Patient uses 2 L oxygen at home. Past medical history: CHF, COPD insulin-dependent diabetes mellitus, hypertension, hyperlipidemia, MA, cervical cancer, thyroid disease Past surgical history: partial hysterectomy, cholecystectomy, hernia repair, tonsillectomy Family history: family history of cancers Personal history: Patient smokes half a pack of cigarettes a day since 41 years, drinks occasionally, smokes methamphetamine Lives with: Family PCP: Constitutional: No: Fever, Chills, Sweats, Weakness, Malaise Eyes: No: Pain, Vision change, Conjunctivae inflammation, Eyelid inflammation, Other, Redness ENT: No: Ear pain, Ear discharge, Nose pain, Nose discharge, Nose congestion, Mouth pain, Mouth swelling, Throat pain, Throat swelling Respiratory: Shortness of breath; No: Cough, Dry, SOB with excertion, Wheezing, Hemoptysis, Pleuritic Pain, Sputum, Wheezing Cardiovascular: No: Chest Pain, Palpitations, Orthopnea, Paroxysmal Noc. Dyspnea, Edema, Lt Headedness Gastrointestinal: No: Nausea, Vomiting, Abdominal Pain, Diarrhea, Constipation, Melena, Hematochezia Genitourinary: No Dysuria, No Frequency, No Incontinence, No Hematuria, No Retention Musculoskeletal: foot pain; No: other, neck pain, shoulder pain, arm pain, back pain, hand pain, leg pain Skin: wound on right foot, Lesions, Jaundice, Bruising Neurological: No: Weakness, Numbness, Incoordination, Change in speech, Confusion, Seizures Allergies: Coded Allergies: Methylphenidate (Verified Allergy, Unknown, 08/14/24) Penicillins (Verified Allergy, Unknown, 08/14/24) 07/06- The patient was seen at bedside today. She complained of an episode of blood in the stools this morning. Stool occult blood sample was sent and came out positive. Gastro consult was placed for the same. The patient also complained of pain in the foot for which she was given Dilaudid. We are waiting for wound consult and Podiatry consult for the wound on the foot. Her urine drug screen came out positive for opiates and amphetamines. Echo was done today which showed concentric left ventricular hypertrophy and ejection fraction between 35 and 40% splint global hypokinesis. Duplex scan for lower extremity vessels was done which showed no hemodynamically significant stenosis based on peak systolic velocity criteria on the right and 20-49% stenosis of the left common femoral artery based on peak systolic velocity criteria. 07/07-Patient was seen today at bedside. Labs and chart reviewed. Patient with leukocytosis, no acute fever or dysuria. No acute complaint. Patient is on IV antibiotic cefepime and vancomycin for right foot wound infection. Tolerating well. Pending podiatry consult. Patient is a HFrEF, EF 35-40%, started on Jardiance and spironolactone. 07/08-The patient was seen at bedside today. Vancomycin was stopped as the patient was developing ANGEL, and she was given a 250 mL bolus of NS. Lisinopril was also stopped. CT abdomen was done today on recommendation by GI which showed Bowel wall thickening of the descending colon with surrounding stranding, likely representing colitis. Other considerations include inflammatory bowel disease.Cirrhotic morphology liver, hepatic steatosis, splenomegaly.Left hepatic lobe hypodense lesion measuring 2.1 cm, incompletely characterized. Recommend multiphasic MRI abdomen with and without contrast.Atherosclerotic disease. Patient is being followed by GI and will most likely undergo colonoscopy tomorrow. Patient reports: Feels better Objective vital signs Vital Sign Date Time Temp Pulse Resp B/P (MAP) Pulse Ox O2 Delivery O2 Flow Rate FiO2 07/08/25 13:11 93 17 151/110 07/08/25 12:54 98.4 95 98.4 07/07/25 20:00 Nasal Cannula* 2 28 Total Intake and Output 07/07/25 07/07/25 07/08/25 15:00 23:00 07:00 Intake Total 900 ml 118 ml Balance 900 ml 118 ml medications Current Medications Medications Dose Ordered Sig/Kathleen Route Start Time Stop Time Status Last Admin Dose Admin Acetaminophen 325 mg Q4HP PRN PO 07/04/25 22:30 Acetaminophen/ Hydrocodone Bitart 1 tab Q4HP PRN PO 07/04/25 22:30 Hold 07/06/25 09:29 1 TAB Ondansetron HCl 4 mg Q4HP PRN IV 07/04/25 22:30 07/05/25 21:52 4 MG Morphine Sulfate 2 mg Q4HPRN PRN IV 07/04/25 22:30 07/05/25 03:23 2 MG Diagnostic Test (Pha) 1 strip Q6HR 07/05/25 12:00 07/08/25 11:41 1 STRIP Insulin Human Regular Q6HR SC 07/05/25 12:00 07/08/25 05:35 3 UNITS Dextrose 50 ml UD PRN IV 07/05/25 07:15 Levothyroxine Sodium 100 mcg QAM@0600 PO 07/06/25 06:00 07/08/25 05:37 100 MCG Insulin Glargine 20 units HS SC 07/05/25 22:00 07/07/25 22:03 20 UNITS Carvedilol 6.25 mg Q12HR PO 07/05/25 22:00 07/08/25 13:00 6.25 MG Furosemide 40 mg DAILY PO 07/05/25 11:00 07/08/25 12:59 40 MG Clopidogrel Bisulfate 75 mg DAILY PO 07/05/25 11:00 07/08/25 12:46 75 MG Aspirin 81 mg DAILY PO 07/06/25 10:00 07/08/25 12:46 81 MG Atorvastatin Calcium 40 mg HS PO 07/05/25 22:00 07/07/25 22:00 40 MG Cefepime HCl 50 ml @ 12.5 mls/hr Q12H IV 07/06/25 13:00 07/08/25 12:45 12.5 MLS/HR Hydromorphone HCl 0.5 mg Q4HPRN PRN IV 07/06/25 12:45 07/08/25 13:11 0.5 MG Pantoprazole Sodium 40 mg DAILY IV 07/08/25 10:00 07/08/25 10:55 40 MG Empaglifozin 10 mg DAILY PO 07/07/25 10:00 07/08/25 12:46 10 MG Spironolactone 25 mg DAILY PO 07/08/25 10:00 07/08/25 12:59 25 MG Vancomycin HCl 0 ml @ 0 mls/hr UD IV 07/08/25 11:30 Examination General: Patient alert and oriented in person, place and time. Patient following commands. moderate distress. HEENT: Normocephalic, atraumatic, moist mucous membranes Respiratory/pulmonary: Clear lungs bilaterally, vesicular murmurs present in almost all lung stokes, no associated crackles or wheezes. Cardiovascular: Normal heart sounds S1 and S2 with no associated murmurs Abdomen: Abdomen nondistended, there is no pain to palpation in any of the abdominal quadrants, no palpable masses. Extremities: 2+ peripheral edema present at the lower extremities, Right foot ulcer on dorsal surface of base of 1st metatarsal with black eschar, white discharge, Erythematous Peripheral Pulses: 3+ Radial (R). 3+ Radial (L). reduced pedal pulses Skin: No rashes or pruritus, there is no sacral edema present at this time. Neurological: Intact cranial nerves with no focal neurologic deficits laboratory and microbiology Laboratory Tests 07/08/25 13:00 Test 07/08/25 13:00 Range/Units Serum Glucose 126 H 74-106 mg/dL Microbiology Date/Time Source Procedure Growth Status 07/06/25 10:28 Toe Right (Big) Gram Stain - Final Resulted 07/06/25 10:28 Toe Right (Big) Wound Culture - Preliminary Resulted 07/05/25 13:55 Voided Urine Urine Culture - Final Complete 07/04/25 20:20 Blood Blood Culture - Preliminary NO GROWTH AFTER 72 HOURS OF INCUBATION. Resulted Labs and/or images reviewed: Labs reviewed by me, Image(s) reviewed by me Problem List/Assessment/Plan Problem List/Assessment/Plan Acute right foot infection status post bite by unspecified organism Wound consult and cultures sent Podiatry consulted IV vancomycin and cefepime IVF Uncontrolled type 2 DM with HbA1c 9.1 Continuously monitor with Accu-Chek Sliding scale Added Lantus 20 units HS chronic hypoxic respiratory failure likely from CHF HX CAD: Continue aspirin, clopidogrel Chronic HFrEF: echo showed Concentric LVH. Left atrial enlargement. Aortic root enlargement. Valves appear to be structurally normal. Left ventricular function appears diminished. EF of approximately 35-40% with mild global hypokinesis. Mild MR. Mild TR. Trace pulmonic insufficiency. Trace aortic insufficiency. No pericardial effusion masses or vegetations discernible. ECG, resumed home medications as tolerated Essential hypertension, controlled Continue home medication ANGEL likely due to VMN on CKD -monitor labs -avoid nephrotoxic agents -IVF Mild Peripheral arterial disease -Doppler study of the lower [id number]% stenosis of the left common femoral artery -continue aspirin and atorvastatin as prescribed hyperlipidemia: Continue atorvastatin history of cervical cancer status post partial hysterectomy hypothyroidism: TSH >150 -Continue home meds levothyroxine 100mcg - repeat TSH and free T4 Nicotine dependence Chronic methamphetamine use - patient counseled on cessation of smoking, methamphetamine abuse for 13 minutes History of of depression/ anxiety: Continue home meds Morbid obesity: BMI 47.5 - counseled on lifestyle modifications, diet, exercise PUD prophylaxis: protonix DVT prophylaxis:on hold Goals of care: Full code, discussed for >16 minutes Plan discussed with patient Plan discussed with Dr Metcalf Plan discussed with: Patient My Orders My Orders Orders - RACHANA DWYER RESIDENT Procedure Category Date Status Time Vancomycin Per PHA 07/08/25 In Process Pharmacy 11:30 Dietary Evaluation Review Comments: 1) Add cardiac restriction to 60g CCHO diet 2) Initiate Filippo @ 1 pk bid 3) Initiate MVI @ 1 tb qd 4) Initiate Vitamin C @ 500 mg bid and zinc sulfate @ 220 mg for 7 days 5) Refer to outpatient RD/[facility] for diabetes education and weight management 6) Follow-up with podiatry 7) Follow-up with oncology social work r/t polysubstance abuse 8) Continue to monitor I&O, labs, and skin integrity Expected Outcomes/Goals: 1) appetite and labs to improve 2) wound to improve 3) gradual wt loss 4) f/u in 3-5 days RACHANA DWYER RESIDENT Jul 08, 2025 15:17 LIANE SAMUELS RESIDENT Jul 09, 2025 09:29
[2025-07-08 16:47] VITALS: BP 113/59; PULSE 86; RESP 24; TEMP 97.2; O2SAT 92
[2025-07-08] MEDS: SODIUM CHLORIDE 0.9% 250 ML IV ONE (17:43)
[2025-07-08] MEDS ORDERED: ALPRAZolam 0.25 MG TAB PO PRN (18:15)
[2025-07-08] MEDS: VANCOMYCIN 1GM/250ML KIT 250 ML IV SCH (18:38)
[2025-07-08 20:00] VITALS: PULSE 95; RESP 18
[2025-07-08] MEDS: ALPRAZolam 0.25 MG TAB PO SCH (22:58)
[2025-07-08 23:00] VITALS: BP 104/55; PULSE 95; RESP 18; TEMP 98.4; O2SAT 97
[2025-07-09 01:00] VITALS: BP 95/51; PULSE 90; RESP 18; TEMP 98.2; O2SAT 99
[2025-07-09 08:00] VITALS: PULSE 72; RESP 18; O2SAT 97
[2025-07-09] MEDS: OMNIPAQUE 12mg/ml 500ml ORAL SOLUTION PO ONE (08:12)
[2025-07-09 08:53] VITALS: BP 104/58; PULSE 72; RESP 18; TEMP 96.5; O2SAT 97
[2025-07-09 10:09] LABS: Hematocrit 40.3 % (36.0-46.0); Hemoglobin 13.5 g/dL (12.2-16.2); Mean Corpuscular Hemoglobin 31.0 pg (28.0-32.0); Mean Corpuscular Volume 92.3 fL (80.0-100.0); Nucleated Red Blood Cells % 0.0 %
[2025-07-09 10:12] LABS: Chloride 99 mmol/L (98-107); Potassium 4.6 mmol/L (3.5-5.1); Sodium 138 mmol/L (136-145)
[2025-07-09 10:13] LABS: Anion Gap 7 (5-15); Calcium 8.9 mg/dL (8.7-10.4)
[2025-07-09 10:15] LABS: Carbon Dioxide 32 mmol/L (20-31)
[2025-07-09 10:18] LABS: BUN/Creatinine Ratio 17.9 (10.0-20.0); Blood Urea Nitrogen 22 mg/dL (9-23)
[2025-07-09 10:34] LABS: Glucose 172 mg/dL (74-106)
[2025-07-09 12:57] VITALS: BP 107/57; PULSE 82; RESP 18; TEMP 98.2; O2SAT 90
--- NOTE | 2025-07-09 14:06 | DVHPN2 ---
Progress Note Date Seen: Jul 09, 2025 Resident Creating Document: NADER LATHAM RESIDENT Medical Necessity Reason Pt with a Central, PICC or Fol: No Subjective Review of Systems Patient seen and examined at bedside Notes having 4 bowel movements in the last 24 hours, 1 of which covered with trace blood Denies any abdominal pain, nausea, vomiting Objective vital signs Vital Sign Date Time Temp Pulse Resp B/P (MAP) Pulse Ox O2 Delivery O2 Flow Rate FiO2 07/09/25 13:11 82 18 107/57 07/09/25 12:57 98.2 90 98.2 07/09/25 08:00 Nasal Cannula* 3 32 Total Intake and Output 07/08/25 07/08/25 07/09/25 14:59 22:59 06:59 Intake Total 1370 ml 450 ml Balance 1370 ml 450 ml medications Current Medications Medications Dose Ordered Sig/Kathleen Route Start Time Stop Time Status Last Admin Dose Admin Acetaminophen 325 mg Q4HP PRN PO 07/04/25 22:30 Acetaminophen/ Hydrocodone Bitart 1 tab Q4HP PRN PO 07/04/25 22:30 Hold 07/06/25 09:29 1 TAB Ondansetron HCl 4 mg Q4HP PRN IV 07/04/25 22:30 07/05/25 21:52 4 MG Morphine Sulfate 2 mg Q4HPRN PRN IV 07/04/25 22:30 07/05/25 03:23 2 MG Diagnostic Test (Pha) 1 strip Q6HR 07/05/25 12:00 07/09/25 12:00 1 STRIP Insulin Human Regular Q6HR SC 07/05/25 12:00 07/09/25 12:00 3 UNITS Dextrose 50 ml UD PRN IV 07/05/25 07:15 Levothyroxine Sodium 100 mcg QAM@0600 PO 07/06/25 06:00 07/09/25 05:46 100 MCG Insulin Glargine 20 units HS SC 07/05/25 22:00 07/08/25 23:07 20 UNITS Carvedilol 6.25 mg Q12HR PO 07/05/25 22:00 07/09/25 11:52 6.25 MG Furosemide 40 mg DAILY PO 07/05/25 11:00 07/09/25 11:51 40 MG Clopidogrel Bisulfate 75 mg DAILY PO 07/05/25 11:00 07/09/25 11:51 75 MG Aspirin 81 mg DAILY PO 07/06/25 10:00 07/09/25 11:51 81 MG Atorvastatin Calcium 40 mg HS PO 07/05/25 22:00 07/08/25 22:58 40 MG Cefepime HCl 50 ml @ 12.5 mls/hr Q12H IV 07/06/25 13:00 07/09/25 13:11 12.5 MLS/HR Hydromorphone HCl 0.5 mg Q4HPRN PRN IV 07/06/25 12:45 07/09/25 13:11 0.5 MG Pantoprazole Sodium 40 mg DAILY IV 07/08/25 10:00 07/09/25 11:50 40 MG Empaglifozin 10 mg DAILY PO 07/07/25 10:00 07/09/25 11:50 10 MG Spironolactone 25 mg DAILY PO 07/08/25 10:00 07/09/25 11:52 25 MG Vancomycin HCl 0 ml @ 0 mls/hr UD IV 07/08/25 11:30 Vancomycin HCl 250 ml @ 250 mls/hr Q12H IV 07/08/25 18:00 07/09/25 06:48 250 MLS/HR Alprazolam 0.25 mg Q8HP PRN PO 07/08/25 18:15 Alprazolam 0.25 mg BID PO 07/08/25 22:00 07/09/25 11:52 0.25 MG Examination General Appearance: Cooperative. Well developed. Well nourished. NAD Pulmonary/Respiratory: Chest non-tender. Clear bilateral breath sounds, no crackles, no wheezing. Cardiovascular/Chest: Regular rate and rhythm. No murmurs. No JVD. Abdominal Exam: Normal bowel sounds. Soft. normal abdomen, no visible veins, Nontender. No hepatospenomegaly. No masses Lower extremities: 2+ lower extremity edema noted. Ulcer noted on the right lower extremity, dorsal aspect. Neuro/Mental Status: A&O x4. Coherent. Thoughts/Psych: Normal thought pattern. Appropriate mood and affect. Good judgement and insight Skin Exam: Normal inspection. Normal color. Warm. Dry laboratory and microbiology Laboratory Tests 07/09/25 09:40 Test 07/09/25 09:40 Range/Units Serum Glucose 172 H 74-106 mg/dL Microbiology Date/Time Source Procedure Growth Status 07/06/25 10:28 Toe Right (Big) Gram Stain - Final Resulted 07/06/25 10:28 Toe Right (Big) Wound Culture - Preliminary Resulted 07/05/25 13:55 Voided Urine Urine Culture - Final Complete 07/04/25 20:20 Blood Blood Culture - Preliminary NO GROWTH AFTER 72 HOURS OF INCUBATION. Resulted Labs and/or images reviewed: Labs reviewed by me, Image(s) reviewed by me Problem List/Assessment/Plan Problem List/Assessment/Plan Rectal bleeding Probable liver cirrhosis, compensated Colitis versus inflammatory bowel disease Left hepatic lobe hypodense lesion 2.1 cm Right lower extremity ulcer Possible sepsis due to above ANGEL likely hemodynamically mediated/VMN Plan: Stable H&H Ordered CEA, AFP Hepatitis panel MONICA Scheduled for colonoscopy tomorrow on 07/10/2025 GoLYTELY, Mag citrate in preparation for colonoscopy NPO for breakfast tomorrow. Thank you so much for the opportunity to consult on your patient. GI team will follow the patient. In case of any questions or concerns please feel free to reach out. Plan discussed with Dr. Hunt Plan discussed with: Patient, Spouse, Other (RN) My Orders My Orders Orders - NADER LATHAM RESIDENT Procedure Category Date Status Time Afp Serum Tumor Marker LAB 07/08/25 In Process 16:22 Comprehensive LAB 07/08/25 In Process Hepatitis Panel 16:22 Monica; Direct LAB 07/08/25 In Process 16:22 Dietary Evaluation Review Comments: 1) Add cardiac restriction to 60g CCHO diet 2) Initiate Filippo @ 1 pk bid 3) Initiate MVI @ 1 tb qd 4) Initiate Vitamin C @ 500 mg bid and zinc sulfate @ 220 mg for 7 days 5) Refer to outpatient RD/[facility] for diabetes education and weight management 6) Follow-up with podiatry 7) Follow-up with social professionals r/t polysubstance abuse 8) Continue to monitor I&O, labs, and skin integrity Expected Outcomes/Goals: 1) appetite and labs to improve 2) wound to improve 3) gradual wt loss 4) f/u in 3-5 days NADER LATHAM RESIDENT Jul 09, 2025 14:06
[2025-07-09] MEDS: GOLYTELY 4L KIT PO ONE (16:19)
--- NOTE | 2025-07-09 18:33 | DVHPNRES ---
Progress Note Date Seen: Jul 09, 2025 Resident Creating Document: RACHANA DWYER RESIDENT Medical Necessity Reason Pt with a Central, PICC or Fol: No Subjective Review of Systems This is a 55-year-old female with past medical history of insulin-dependent diabetes mellitus, COPD, CHF, hypertension, hyperlipidemia, [place], cervical cancer and thyroid disease. Patient came to the ER with a chief complaint of pain in the right foot secondary to an ulcer that has been there for almost 3 weeks. Patient mentions that she while cleaning her garage 3 weeks back, insect bit her foot post which an ulcer began to develop at the site. The patient was given oral antibiotics for the same, but there was no improvement seen in the wound. The patient describes the pain as a burning sensation, 8 on 10 in intensity. The patient states the pain is relieved with rest and aggravated by walking. Patient uses 2 L oxygen at home. Past medical history: CHF, COPD insulin-dependent diabetes mellitus, hypertension, hyperlipidemia, [place], cervical cancer, thyroid disease Past surgical history: partial hysterectomy, cholecystectomy, hernia repair, tonsillectomy Family history: family history of cancers Personal history: Patient smokes half a pack of cigarettes a day since 41 years, drinks occasionally, smokes methamphetamine Lives with: Family PCP: Constitutional: No: Fever, Chills, Sweats, Weakness, Malaise Eyes: No: Pain, Vision change, Conjunctivae inflammation, Eyelid inflammation, Other, Redness ENT: No: Ear pain, Ear discharge, Nose pain, Nose discharge, Nose congestion, Mouth pain, Mouth swelling, Throat pain, Throat swelling Respiratory: Shortness of breath; No: Cough, Dry, SOB with excertion, Wheezing, Hemoptysis, Pleuritic Pain, Sputum, Wheezing Cardiovascular: No: Chest Pain, Palpitations, Orthopnea, Paroxysmal Noc. Dyspnea, Edema, Lt Headedness Gastrointestinal: No: Nausea, Vomiting, Abdominal Pain, Diarrhea, Constipation, Melena, Hematochezia Genitourinary: No Dysuria, No Frequency, No Incontinence, No Hematuria, No Retention Musculoskeletal: foot pain; No: other, neck pain, shoulder pain, arm pain, back pain, hand pain, leg pain Skin: wound on right foot, Lesions, Jaundice, Bruising Neurological: No: Weakness, Numbness, Incoordination, Change in speech, Confusion, Seizures Allergies: Coded Allergies: Methylphenidate (Verified Allergy, Unknown, 08/14/24) Penicillins (Verified Allergy, Unknown, 08/14/24) General: Patient alert and oriented in person, place and time. Patient following commands. moderate distress HEENT: Normocephalic, atraumatic, moist mucous membranes Respiratory/pulmonary: Clear lungs bilaterally, vesicular murmurs present in almost all lung stokes, no associated crackles or wheezes. Cardiovascular: Normal heart sounds S1 and S2 with no associated murmurs Abdomen: Abdomen nondistended, there is no pain to palpation in any of the abdominal quadrants, no palpable masses. Extremities: 2+ peripheral edema present at the lower extremities, Right foot ulcer on dorsal surface of base of 1st metatarsal with black eschar, white discharge, Erythematous Peripheral Pulses: 3+ Radial (R). 3+ Radial (L). reduced pedal pulses Skin: No rashes or pruritus, there is no sacral edema present at this time. Neurological: Intact cranial nerves with no focal neurologic deficits 07/06- The patient was seen at bedside today. She complained of an episode of blood in the stools this morning. Stool occult blood sample was sent and came out positive. Gastro consult was placed for the same. The patient also complained of pain in the foot for which she was given Dilaudid. We are waiting for wound consult and Podiatry consult for the wound on the foot. Her urine drug screen came out positive for opiates and amphetamines. Echo was done today which showed concentric left ventricular hypertrophy and ejection fraction between 35 and 40% splint global hypokinesis. Duplex scan for lower extremity vessels was done which showed no hemodynamically significant stenosis based on peak systolic velocity criteria on the right and 20-49% stenosis of the left common femoral artery based on peak systolic velocity criteria. 07/07-Patient was seen today at bedside. Labs and chart reviewed. Patient with leukocytosis, no acute fever or dysuria. No acute complaint. Patient is on IV antibiotic cefepime and vancomycin for right foot wound infection. Tolerating well. Pending podiatry consult. Patient is a HFrEF, EF 35-40%, started on Jardiance and spironolactone. 07/08-The patient was seen at bedside today. Vancomycin was stopped as the patient was developing ANGEL, and she was given a 250 mL bolus of NS. Lisinopril was also stopped. CT abdomen was done today on recommendation by GI which showed Bowel wall thickening of the descending colon with surrounding stranding, likely representing colitis. Other considerations include inflammatory bowel disease.Cirrhotic morphology liver, hepatic steatosis, splenomegaly.Left hepatic lobe hypodense lesion measuring 2.1 cm, incompletely characterized. Recommend multiphasic MRI abdomen with and without contrast.Atherosclerotic disease. Patient is being followed by GI and will most likely undergo colonoscopy tomorrow. 07/09- patient was seen at bedside today. Her vitals are stable and labs are within range. GI saw her today and scheduled her for a colonoscopy tomorrow as she had had multiple episodes of rectal bleeding. A triple phase CT to check for the liver mass was done today. Pending results of the CT. The patient and the family for explained about all diagnosis and medications being given and the plan for the patient. Objective vital signs Vital Sign Date Time Temp Pulse Resp B/P (MAP) Pulse Ox O2 Delivery O2 Flow Rate FiO2 07/09/25 13:41 70 18 109/61 07/09/25 12:57 98.2 90 98.2 07/09/25 08:00 Nasal Cannula* 3 32 Total Intake and Output 07/08/25 07/08/25 07/09/25 15:00 23:00 07:00 Intake Total 1370 ml 450 ml Balance 1370 ml 450 ml medications Current Medications Medications Dose Ordered Sig/Kathleen Route Start Time Stop Time Status Last Admin Dose Admin Acetaminophen 325 mg Q4HP PRN PO 07/04/25 22:30 Acetaminophen/ Hydrocodone Bitart 1 tab Q4HP PRN PO 07/04/25 22:30 Hold 07/06/25 09:29 1 TAB Ondansetron HCl 4 mg Q4HP PRN IV 07/04/25 22:30 07/05/25 21:52 4 MG Morphine Sulfate 2 mg Q4HPRN PRN IV 07/04/25 22:30 07/05/25 03:23 2 MG Diagnostic Test (Pha) 1 strip Q6HR 07/05/25 12:00 07/09/25 17:31 1 STRIP Insulin Human Regular Q6HR SC 07/05/25 12:00 07/09/25 17:50 4 UNITS Dextrose 50 ml UD PRN IV 07/05/25 07:15 Levothyroxine Sodium 100 mcg QAM@0600 PO 07/06/25 06:00 07/09/25 05:46 100 MCG Insulin Glargine 20 units HS SC 07/05/25 22:00 07/08/25 23:07 20 UNITS Carvedilol 6.25 mg Q12HR PO 07/05/25 22:00 07/09/25 11:52 6.25 MG Furosemide 40 mg DAILY PO 07/05/25 11:00 07/09/25 11:51 40 MG Clopidogrel Bisulfate 75 mg DAILY PO 07/05/25 11:00 07/09/25 11:51 75 MG Aspirin 81 mg DAILY PO 07/06/25 10:00 07/09/25 11:51 81 MG Atorvastatin Calcium 40 mg HS PO 07/05/25 22:00 07/08/25 22:58 40 MG Cefepime HCl 50 ml @ 12.5 mls/hr Q12H IV 07/06/25 13:00 07/09/25 13:11 12.5 MLS/HR Hydromorphone HCl 0.5 mg Q4HPRN PRN IV 07/06/25 12:45 07/09/25 13:11 0.5 MG Pantoprazole Sodium 40 mg DAILY IV 07/08/25 10:00 07/09/25 11:50 40 MG Empaglifozin 10 mg DAILY PO 07/07/25 10:00 07/09/25 11:50 10 MG Spironolactone 25 mg DAILY PO 07/08/25 10:00 07/09/25 11:52 25 MG Vancomycin HCl 0 ml @ 0 mls/hr UD IV 07/08/25 11:30 Vancomycin HCl 250 ml @ 250 mls/hr Q12H IV 07/08/25 18:00 07/09/25 06:48 250 MLS/HR Alprazolam 0.25 mg Q8HP PRN PO 07/08/25 18:15 Alprazolam 0.25 mg BID PO 07/08/25 22:00 07/09/25 11:52 0.25 MG Examination General: Patient alert and oriented in person, place and time. Patient following commands. moderate distress. Patient is on 3 L oxygen by nasal cannula. HEENT: Normocephalic, atraumatic, moist mucous membranes Respiratory/pulmonary: Clear lungs bilaterally, vesicular murmurs present in almost all lung stokes, no associated crackles or wheezes. Cardiovascular: Normal heart sounds S1 and S2 with no associated murmurs Abdomen: Abdomen nondistended, there is no pain to palpation in any of the abdominal quadrants, no palpable masses. Extremities: 2+ peripheral edema present at the lower extremities, Right foot ulcer on dorsal surface of base of 1st metatarsal with black eschar, white discharge, Erythematous Peripheral Pulses: 3+ Radial (R). 3+ Radial (L). reduced pedal pulses Skin: No rashes or pruritus, there is no sacral edema present at this time. Neurological: Intact cranial nerves with no focal neurologic deficits laboratory and microbiology Laboratory Tests 07/09/25 09:40 Test 07/09/25 09:40 Range/Units Serum Glucose 172 H 74-106 mg/dL Microbiology Date/Time Source Procedure Growth Status 07/06/25 10:28 Toe Right (Big) Gram Stain - Final Complete 07/06/25 10:28 Wound Culture - Final Enterococcus faecalis Complete 07/05/25 13:55 Voided Urine Urine Culture - Final Complete 07/04/25 20:20 Blood Blood Culture - Preliminary NO GROWTH AFTER 72 HOURS OF INCUBATION. Resulted Labs and/or images reviewed: Labs reviewed by me, Image(s) reviewed by me Problem List/Assessment/Plan Problem List/Assessment/Plan Acute right foot infection status post bite by unspecified organism Wound consult and cultures sent Podiatry consulted IV vancomycin and cefepime IVF Uncontrolled type 2 DM with HbA1c 9.1 Continuously monitor with Accu-Chek Sliding scale Added Lantus 20 units HS chronic hypoxic respiratory failure likely from CHF HX CAD: Continue aspirin, clopidogrel Chronic HFrEF: echo showed Concentric LVH. Left atrial enlargement. Aortic root enlargement. Valves appear to be structurally normal. Left ventricular function appears diminished. EF of approximately 35-40% with mild global hypokinesis. Mild MR. Mild TR. Trace pulmonic insufficiency. Trace aortic insufficiency. No pericardial effusion masses or vegetations discernible. ECG, resumed home medications as tolerated Probable liver cirrhosis, compensated Multiple episodes of rectal bleed Hepatic lobe hypodense lesion 2.1 cm Cirrhotic morphology of liver on CT abdomen IBD versus colitis ct showed findings Scheduled for colonoscopy Essential hypertension, controlled Continue home medication ANGEL likely due to VMN on CKD -monitor labs -avoid nephrotoxic agents -IVF Mild Peripheral arterial disease -Doppler study of the lower [id number]% stenosis of the left common femoral artery -continue aspirin and atorvastatin as prescribed hyperlipidemia Continue atorvastatin history of cervical cancer status post partial hysterectomy hypothyroidism: TSH >150 -Continue home meds levothyroxine 100mcg - repeat TSH and free T4 Nicotine dependence Chronic methamphetamine use - patient counseled on cessation of smoking, methamphetamine abuse for 13 minutes History of of depression/ anxiety: Continue home meds Morbid obesity: BMI 47.5 - counseled on lifestyle modifications, diet, exercise PUD prophylaxis: protonix DVT prophylaxis:on hold Goals of care: Full code, discussed for >16 minutes Plan discussed with patient Plan discussed with Dr Metcalf Plan discussed with: Patient, Spouse, Daughter My Orders My Orders Orders - RACHANA DWYER RESIDENT Procedure Category Date Status Time Afp Serum Tumor Marker LAB 07/09/25 In Process 11:06 Cancer Antigen (Ca) LAB 07/09/25 In Process 125 11:06 Consult CONS 07/09/25 Transmitted Vascular/Endovascular 14:08 Ct Ab Pel With Iv Con CT 07/09/25 Logged Only 14:37 Dietary Evaluation Review Comments: 1) Add cardiac restriction to 60g CCHO diet 2) Initiate Filippo @ 1 pk bid 3) Initiate MVI @ 1 tb qd 4) Initiate Vitamin C @ 500 mg bid and zinc sulfate @ 220 mg for 7 days 5) Refer to outpatient RD/[facility] for diabetes education and weight management 6) Follow-up with podiatry 7) Follow-up with bull gang worker r/t polysubstance abuse 8) Continue to monitor I&O, labs, and skin integrity Expected Outcomes/Goals: 1) appetite and labs to improve 2) wound to improve 3) gradual wt loss 4) f/u in 3-5 days RACHANA DWYER RESIDENT Jul 09, 2025 18:33 LIANE SAMUELS RESIDENT Jul 09, 2025 19:28
[2025-07-09 20:30] VITALS: RESP 22; O2SAT 95
[2025-07-09 21:00] VITALS: BP 103/60; PULSE 84; RESP 18; TEMP 97.8; O2SAT 95
[2025-07-09] MEDS ORDERED: IOHEXOL 300 MG/ML 100ML BOTTLE IJ ONE (23:45)
[2025-07-10] VITALS (9 sets, daily range): BP systolic 108–131; BP diastolic 56–83; PULSE 65–90; RESP 12–22; TEMP 97.1–98.1; O2SAT 90–100
--- NOTE | 2025-07-10 03:21 | DVH ---
Exam: CT CT AB PEL WITH IV CON ONLY History: triple phase ct to evaluate 2.[address] mass on CT abdomen COMPARISON: CT CT AB PEL WITH ORAL CON ONLY on DOS: 07/08/25 Technique: Multidetector spiral CT of the abdomen and pelvis was performed from lung bases to pubic s ymphysis. Intravenous contrast was administered during this examination. Portal venous imaging was o btained. Axial, coronal and sagittal multiplanar reformats were performed by the technologist on a [employer] workstation. Radiation Dose : 1. Abdomen/Pelvis: CTDIvol 38.94mGy, DLP 4370.45 mGy*cm. CONTRAST: Type of contrast: Omnipaque 300 Contrast injected: 100 ml Findings: Lung Bases: No acute or significant lung base finding. Cardiomegaly. No pleural or pericardial effus ion. Liver: The liver is enlarged, measuring 22.0 cm in craniocaudal dimension. 2.4 cm relatively well-cir cumscribed hypoattenuating lesion within hepatic segment 4B without evidence of significant periphera l or late phase enhancement. Otherwise, normal hepatic vascular enhancement. Gallbladder and Biliary Tree: Status post cholecystectomy. Spleen: Unremarkable Pancreas: The pancreas is normal in appearance without focal lesions or abnormal enhancement. Adrenal Glands: Unremarkable Kidneys: No hydronephrosis. Bladder: Unremarkable Bowel: The stomach is grossly normal in appearance. Ciro-lj-zvgbgyal circumferential intramural edema of the splenic flexure and proximal descending colon with mild adjacent inflammatory change suggesti ve of sequelae of colitis. Small bowel and colon are otherwise normal in caliber and distribution. Th e appendix is normal. Ascites: Absent Lymphadenopathy: No mesenteric, retroperitoneal or periportal lymphadenopathy. Abdominal Wall and Mesentery: Unremarkable. Vasculature: The visualized abdominal aorta is normal in size and caliber. Atherosclerotic vascular c alcifications. Abdominal and pelvic vessels demonstrate normal enhancement. Pelvic Organs: Unremarkable status post hysterectomy. Musculoskeletal: No aggressive focal bony lesions, acute fractures or dislocation. IMPRESSION: 1. Hepatic segment 4B hypoattenuating lesion without evidence of significant peripheral overly efface enhancement. Considerations include benign etiology such as hepatic cyst and hemangioma. If further characterization is desired, multiphasic MRI is recommended. 2. Cardiomegaly. 3. Hepatomegaly. 4. Bhtb-pm-bnukgzuu circumferential intramural edema of the splenic flexure and proximal descending c olon with mild adjacent inflammatory change suggestive of sequelae of colitis. Radiation optimization: All CT scans at this facility use at least one of these dose optimization bobbi hniques: automated exposure control mA and/or kV adjustment per patient size (includes targeted exam s where dose is matched to clinical indication) or iterative reconstruction.
[2025-07-10] MEDS: ACETAMINOPHEN 325 MG TAB PO PRN (03:55)
[2025-07-10] MEDS: MAGNESIUM CITRATE SOLUTION 300 ML BTL PO ONE (06:38)
[2025-07-10] MEDS: GOLYTELY 4L KIT PO ONE (06:39)
[2025-07-10 07:52] LABS: Potassium 4.3 mmol/L (3.5-5.1); Sodium 138 mmol/L (136-145)
[2025-07-10 07:53] LABS: Anion Gap 6 (5-15)
[2025-07-10 07:54] LABS: Calcium 9.2 mg/dL (8.7-10.4)
[2025-07-10 07:58] LABS: BUN/Creatinine Ratio 11.8 (10.0-20.0); Blood Urea Nitrogen 13 mg/dL (9-23)
[2025-07-10 07:59] LABS: Hematocrit 40.0 % (36.0-46.0); Hemoglobin 13.4 g/dL (12.2-16.2); Mean Corpuscular Hemoglobin 30.8 pg (28.0-32.0); Mean Corpuscular Volume 92.1 fL (80.0-100.0); Nucleated Red Blood Cells % 0.0 %
[2025-07-10 08:05] LABS: Carbon Dioxide 35 mmol/L (20-31); Chloride 97 mmol/L (98-107); Glucose 129 mg/dL (74-106)
[2025-07-10 08:08] LABS: INR 1.09 (0.9-1.15); Partial Thromboplastin Time 25.9 SEC (24.5-34.5); Prothrombin Time 11.5 sec (9.3-11.8)
[2025-07-10 09:07] LABS: Anti-Nuclear Antibody Direct Negative (Negative)
[2025-07-10] MEDS: VANCOMYCIN 750MG KIT 100 ML IV SCH (10:15)
[2025-07-10] MEDS ORDERED: LORazepam 2MG/ML-1ML VIAL IV ONE (11:30)
--- NOTE | 2025-07-10 12:13 | MEDREC ---
PENDING SALE TO [facility] Intervention Section I PENDING SALE TO [facility] Intervention: Review courses of therapy (PLEASE CONSIDER DE-ESCALATION BASED ON CULTURE RESULTS AND SUSCEPTIBILITIES) KAMARI ZARATE PHARMACIST Jul 10, 2025 12:13
[2025-07-10 12:43] LABS: Hepatitis A Total Antibody Positive (Negative)
[2025-07-10 12:44] LABS: Hepatitis B Surface Antigen Negative (Negative); Hepatitis C Antibody Negative (Negative)
[2025-07-10] MEDS ORDERED: SODIUM CHLORIDE LOCK 10 ML ONE (14:18)
[2025-07-10] MEDS: MIDAZOLAM HCL 5 MG/ML-1ML VIAL ONE (14:29)
[2025-07-10] MEDS: diphenhdrAMINE HCL 50 MG/1 ML VL ONE (14:29)
[2025-07-10] MEDS: fentaNYL CITRATE 100 MCG/2 ML VL ONE (14:29)
--- NOTE | 2025-07-10 14:49 | DVHOP2 ---
Operative Report DATE OF OPERATION: 07/10/25 PROCEDURE: Incomplete Colonoscopy due to poor prep PREOPERATIVE INDICATION: The patient is a 55 -year-old female undergoing colonoscopy for history of rectal bleeding POSTOPERATIVE DIAGNOSES: 1. Trace to 1+ internal hemorrhoids ; normal brown stool and no active bleeding no fresh or old blood seen in the lower GI 2. Incomplete colonoscopy examination up to the splenic flexure due to poor prep with a large amount of thick liquid stool and debris in the colon impairing visualization PROCEDURE PERFORMED BY: Sabina Hunt M.D. SCOPE: Olympus videocolonoscope. ASA CLASS: 3. PREOPERATIVE MEDICATIONS: Versed 2 mg, Fentanyl 50 mcg, Benadryl 50 mg PROCEDURE IN DETAIL: After obtaining an informed consent, the patient was placed on left lateral decubitus position. She was then sedated with the above medications. A rectal examination was performed that was normal. The colonoscope was then passed through the anus into the rectosigmoid colon up to the splenic flexure. The colonoscope was then withdrawn. Patient had a very poor prep that was limiting visualization up to and beyond the extended examination The visualized portion of the colon was normal with no polyps or masses seen. Patient had no fresh or old blood in the lower GI tract She had liquid brown stool .On retroflexion patient had trace to 1+ internal hemorrhoids The patient tolerated the procedure well without difficulty. WITHDRAWAL TIME: Not applicable QUALITY OF THE PREP: [place] Bowel Prep score: Not applicable, poor prep COMPLICATIONS : None SPECIMENS: None DISPOSITION: Transfer back to the floor Stable PLAN: 1. Repeat colonoscopy with better 2-3 day bowel prep electively as an outpatient in the near future 2. No active bleeding at this time and H&H is stable. 3. Resume GI soft diet advance as tolerated 4. Outpatient follow up with me in 4-6 weeks to review results and discuss further management SABINA HUNT MD Jul 10, 2025 14:49
--- NOTE | 2025-07-10 15:06 | DVHPNRES ---
Progress Note Date Seen: Jul 10, 2025 Resident Creating Document: RACHANA DWYER RESIDENT Medical Necessity Reason Pt with a Central, PICC or Fol: No Subjective Review of Systems This is a 55-year-old female with past medical history of insulin-dependent diabetes mellitus, COPD, CHF, hypertension, hyperlipidemia, SC, cervical cancer and thyroid disease. Patient came to the ER with a chief complaint of pain in the right foot secondary to an ulcer that has been there for almost 3 weeks. Patient mentions that she while cleaning her garage 3 weeks back, insect bit her foot post which an ulcer began to develop at the site. The patient was given oral antibiotics for the same, but there was no improvement seen in the wound. The patient describes the pain as a burning sensation, 8 on 10 in intensity. The patient states the pain is relieved with rest and aggravated by walking. Patient uses 2 L oxygen at home. Past medical history: CHF, COPD insulin-dependent diabetes mellitus, hypertension, hyperlipidemia, SC, cervical cancer, thyroid disease Past surgical history: partial hysterectomy, cholecystectomy, hernia repair, tonsillectomy Family history: family history of cancers Personal history: Patient smokes half a pack of cigarettes a day since 41 years, drinks occasionally, smokes methamphetamine Lives with: Family PCP: Constitutional: No: Fever, Chills, Sweats, Weakness, Malaise Eyes: No: Pain, Vision change, Conjunctivae inflammation, Eyelid inflammation, Other, Redness ENT: No: Ear pain, Ear discharge, Nose pain, Nose discharge, Nose congestion, Mouth pain, Mouth swelling, Throat pain, Throat swelling Respiratory: Shortness of breath; No: Cough, Dry, SOB with excertion, Wheezing, Hemoptysis, Pleuritic Pain, Sputum, Wheezing Cardiovascular: No: Chest Pain, Palpitations, Orthopnea, Paroxysmal Noc. Dyspnea, Edema, Lt Headedness Gastrointestinal: No: Nausea, Vomiting, Abdominal Pain, Diarrhea, Constipation, Melena, Hematochezia Genitourinary: No Dysuria, No Frequency, No Incontinence, No Hematuria, No Retention Musculoskeletal: foot pain; No: other, neck pain, shoulder pain, arm pain, back pain, hand pain, leg pain Skin: wound on right foot, Lesions, Jaundice, Bruising Neurological: No: Weakness, Numbness, Incoordination, Change in speech, Confusion, Seizures Allergies: Coded Allergies: Methylphenidate (Verified Allergy, Unknown, 08/14/24) Penicillins (Verified Allergy, Unknown, 08/14/24) 07/06- The patient was seen at bedside today. She complained of an episode of blood in the stools this morning. Stool occult blood sample was sent and came out positive. Gastro consult was placed for the same. The patient also complained of pain in the foot for which she was given Dilaudid. We are waiting for wound consult and Podiatry consult for the wound on the foot. Her urine drug screen came out positive for opiates and amphetamines. Echo was done today which showed concentric left ventricular hypertrophy and ejection fraction between 35 and 40% splint global hypokinesis. Duplex scan for lower extremity vessels was done which showed no hemodynamically significant stenosis based on peak systolic velocity criteria on the right and 20-49% stenosis of the left common femoral artery based on peak systolic velocity criteria. 07/07-Patient was seen today at bedside. Labs and chart reviewed. Patient with leukocytosis, no acute fever or dysuria. No acute complaint. Patient is on IV antibiotic cefepime and vancomycin for right foot wound infection. Tolerating well. Pending podiatry consult. Patient is a HFrEF, EF 35-40%, started on Jardiance and spironolactone. 07/08-The patient was seen at bedside today. Vancomycin was stopped as the patient was developing ANGEL, and she was given a 250 mL bolus of NS. Lisinopril was also stopped. CT abdomen was done today on recommendation by GI which showed Bowel wall thickening of the descending colon with surrounding stranding, likely representing colitis. Other considerations include inflammatory bowel disease.Cirrhotic morphology liver, hepatic steatosis, splenomegaly.Left hepatic lobe hypodense lesion measuring 2.1 cm, incompletely characterized. Recommend multiphasic MRI abdomen with and without contrast.Atherosclerotic disease. Patient is being followed by GI and will most likely undergo colonoscopy tomorrow. 07/09- The patient was seen at bedside today. Her vitals are stable and labs are within range. GI saw her today and scheduled her for a colonoscopy tomorrow as she had had multiple episodes of rectal bleeding. A triple phase CT to check for the liver mass was done today. Pending results of the CT. The patient and the family for explained about all diagnosis and medications being given and the plan for the patient. 07/10- The patient was seen at bedside today. Patient was taken for colonoscopy, pending results. The triple phase CT on 07/09 patient mentioned the hepatic mass to be likely benign, hepatomegaly and possible colitis. Wound care was consulted again to look at the foot ulcer to evaluate it. Ativan was given to control the patient's anxiety Objective vital signs Vital Sign Date Time Temp Pulse Resp B/P (MAP) Pulse Ox O2 Delivery O2 Flow Rate FiO2 07/10/25 13:00 97.5 78 12 123/83 (96) 92 97.5 07/09/25 20:30 Nasal Cannula* 2 28 Total Intake and Output 07/09/25 07/09/25 07/10/25 15:00 23:00 07:00 Intake Total 250 ml 1250 ml 300 ml Balance 250 ml 1250 ml 300 ml medications Current Medications Medications Dose Ordered Sig/Kathleen Route Start Time Stop Time Status Last Admin Dose Admin Acetaminophen 325 mg Q4HP PRN PO 07/04/25 22:30 07/10/25 03:55 325 MG Acetaminophen/ Hydrocodone Bitart 1 tab Q4HP PRN PO 07/04/25 22:30 Hold 07/06/25 09:29 1 TAB Ondansetron HCl 4 mg Q4HP PRN IV 07/04/25 22:30 07/05/25 21:52 4 MG Morphine Sulfate 2 mg Q4HPRN PRN IV 07/04/25 22:30 07/05/25 03:23 2 MG Diagnostic Test (Pha) 1 strip Q6HR 07/05/25 12:00 07/10/25 11:33 1 STRIP Insulin Human Regular Q6HR SC 07/05/25 12:00 07/09/25 23:29 2 UNITS Dextrose 50 ml UD PRN IV 07/05/25 07:15 Levothyroxine Sodium 100 mcg QAM@0600 PO 07/06/25 06:00 07/09/25 05:46 100 MCG Insulin Glargine 20 units HS SC 07/05/25 22:00 07/09/25 21:47 20 UNITS Carvedilol 6.25 mg Q12HR PO 07/05/25 22:00 07/09/25 21:50 6.25 MG Furosemide 40 mg DAILY PO 07/05/25 11:00 07/09/25 11:51 40 MG Clopidogrel Bisulfate 75 mg DAILY PO 07/05/25 11:00 07/09/25 11:51 75 MG Aspirin 81 mg DAILY PO 07/06/25 10:00 07/09/25 11:51 81 MG Atorvastatin Calcium 40 mg HS PO 07/05/25 22:00 07/09/25 21:49 40 MG Cefepime HCl 50 ml @ 12.5 mls/hr Q12H IV 07/06/25 13:00 07/10/25 01:22 12.5 MLS/HR Hydromorphone HCl 0.5 mg Q4HPRN PRN IV 07/06/25 12:45 07/10/25 06:43 0.5 MG Pantoprazole Sodium 40 mg DAILY IV 07/08/25 10:00 07/10/25 09:39 40 MG Empaglifozin 10 mg DAILY PO 07/07/25 10:00 07/09/25 11:50 10 MG Spironolactone 25 mg DAILY PO 07/08/25 10:00 07/09/25 11:52 25 MG Vancomycin HCl 0 ml @ 0 mls/hr UD IV 07/08/25 11:30 Alprazolam 0.25 mg Q8HP PRN PO 07/08/25 18:15 Alprazolam 0.25 mg BID PO 07/08/25 22:00 07/09/25 21:50 0.25 MG Vancomycin HCl 100 ml @ 100 mls/hr Q12H IV 07/10/25 10:00 07/10/25 10:15 100 MLS/HR Examination General: Patient alert and oriented in person, place and time. Patient following commands. moderate distress. Patient is on 3 L oxygen by nasal cannula. HEENT: Normocephalic, atraumatic, moist mucous membranes Respiratory/pulmonary: Clear lungs bilaterally, vesicular murmurs present in almost all lung stokes, no associated crackles or wheezes. Cardiovascular: Normal heart sounds S1 and S2 with no associated murmurs Abdomen: Abdomen nondistended, there is no pain to palpation in any of the abdominal quadrants, no palpable masses. Extremities: 2+ peripheral edema present at the lower extremities, Right foot ulcer on dorsal surface of base of 1st metatarsal with black eschar, white discharge, Erythematous Peripheral Pulses: 3+ Radial (R). 3+ Radial (L). reduced pedal pulses Skin: No rashes or pruritus, there is no sacral edema present at this time. Neurological: Intact cranial nerves with no focal neurologic deficits laboratory and microbiology Laboratory Tests 07/10/25 07:17 Test 07/10/25 07:17 Range/Units Serum Glucose 129 H 74-106 mg/dL Microbiology Date/Time Source Procedure Growth Status 07/06/25 10:28 Toe Right (Big) Gram Stain - Final Complete 07/06/25 10:28 Wound Culture - Final Enterococcus faecalis Complete 07/05/25 13:55 Voided Urine Urine Culture - Final Complete 07/04/25 20:20 Blood Blood Culture - Final NO GROWTH AFTER 5 DAYS OF INCUBATION. Complete Labs and/or images reviewed: Labs reviewed by me, Image(s) reviewed by me Problem List/Assessment/Plan Problem List/Assessment/Plan Acute right foot infection status post bite by unspecified organism Wound consult and cultures sent Podiatry consulted IV vancomycin and cefepime IVF Uncontrolled type 2 DM with HbA1c 9.1 Continuously monitor with Accu-Chek Sliding scale Added Lantus 20 units HS chronic hypoxic respiratory failure likely from CHF HX CAD: Continue aspirin, clopidogrel Chronic HFrEF: echo showed Concentric LVH. Left atrial enlargement. Aortic root enlargement. Valves appear to be structurally normal. Left ventricular function appears diminished. EF of approximately 35-40% with mild global hypokinesis. Mild MR. Mild TR. Trace pulmonic insufficiency. Trace aortic insufficiency. No pericardial effusion masses or vegetations discernible. ECG, resumed home medications as tolerated Probable liver cirrhosis, compensated Multiple episodes of rectal bleed Hepatic lobe hypodense lesion 2.1 cm Cirrhotic morphology of liver on CT abdomen CT of abdomen 1. Hepatic segment 4B hypoattenuating lesion without evidence of significant peripheral overly efface enhancement. Considerations include benign etiology such as hepatic cyst and hemangioma. 2. Cardiomegaly. 3. Hepatomegaly. 4. [id number] circumferential intramural edema of the splenic flexure and proximal descending colon with mild adjacent inflammatory change suggestive of sequelae of colitis. IBD versus colitis ct showed findings Scheduled for colonoscopy Essential hypertension, controlled Continue home medication ANGEL likely due to VMN on CKD -monitor labs -avoid nephrotoxic agents -IVF Mild Peripheral arterial disease -Doppler study of the lower [id number]% stenosis of the left common femoral artery -continue aspirin and atorvastatin as prescribed hyperlipidemia Continue atorvastatin history of cervical cancer status post partial hysterectomy hypothyroidism: TSH >150 -Continue home meds levothyroxine 100mcg - repeat TSH and free T4 Nicotine dependence Chronic methamphetamine use - patient counseled on cessation of smoking, methamphetamine abuse for 13 minutes History of of depression/ anxiety: Continue home meds Morbid obesity: BMI 47.5 - counseled on lifestyle modifications, diet, exercise PUD prophylaxis: protonix DVT prophylaxis:on hold Goals of care: Full code, discussed for >16 minutes Plan discussed with patient Plan discussed with Dr Metcalf Plan discussed with: Patient, Spouse, Daughter Plan discussed with: Patient My Orders My Orders Orders - RACHANA DWYER RESIDENT Procedure Category Date Status Time Vancomycin 750mg Kit PHA 07/10/25 In Process (Vancomycin Hcl) 10:00 Vancomycin Per ROBERT 07/10/25 In Process Pharmacy Protoc 10:00 Vancomycin,Trough LAB 07/11/25 Verified 21:00 Creatinine LAB 07/11/25 Verified 04:00 Dietary Evaluation Review Comments: 1) Add cardiac restriction to 60g CCHO diet 2) Initiate Filippo @ 1 pk bid 3) Initiate MVI @ 1 tb qd 4) Initiate Vitamin C @ 500 mg bid and zinc sulfate @ 220 mg for 7 days 5) Refer to outpatient RD/[facility] for diabetes education and weight management 6) Follow-up with podiatry 7) Follow-up with social work administrator r/t polysubstance abuse 8) Continue to monitor I&O, labs, and skin integrity Expected Outcomes/Goals: 1) appetite and labs to improve 2) wound to improve 3) gradual wt loss 4) f/u in 3-5 days RACHANA DWYER RESIDENT Jul 10, 2025 15:06
[2025-07-11 05:00] VITALS: BP 126/67; PULSE 82; RESP 18; TEMP 97.5; O2SAT 98
[2025-07-11 08:00] VITALS: PULSE 78; RESP 16; O2SAT 98
[2025-07-11 09:11] VITALS: BP 127/79; PULSE 78; RESP 16; TEMP 97.5; O2SAT 98
[2025-07-11 09:15] LABS: Hematocrit 38.7 % (36.0-46.0); Hemoglobin 12.9 g/dL (12.2-16.2); Mean Corpuscular Hemoglobin 30.7 pg (28.0-32.0); Mean Corpuscular Volume 92.3 fL (80.0-100.0); Nucleated Red Blood Cells % 0.1 %
[2025-07-11 09:35] LABS: Anion Gap 5 (5-15); Calcium 9.1 mg/dL (8.7-10.4); Chloride 102 mmol/L (98-107); Potassium 4.5 mmol/L (3.5-5.1); Sodium 141 mmol/L (136-145)
[2025-07-11 09:40] LABS: BUN/Creatinine Ratio 19.1 (10.0-20.0); Blood Urea Nitrogen 18 mg/dL (9-23)
[2025-07-11 09:42] LABS: Carbon Dioxide 34 mmol/L (20-31); Glucose 114 mg/dL (74-106)
--- NOTE | 2025-07-11 10:23 | DVHPN2 ---
Progress Note Date Seen: Jul 11, 2025 Resident Creating Document: NADER LATHAM RESIDENT Medical Necessity Reason Pt with a Central, PICC or Fol: No Subjective Review of Systems Patient seen and examined at bedside Notes having 4 bowel movements, 2 of which were covered with bled Reports nausea Reports increasing pain in the right lower extremity Objective vital signs Vital Sign Date Time Temp Pulse Resp B/P (MAP) Pulse Ox O2 Delivery O2 Flow Rate FiO2 07/11/25 09:11 97.5 78 16 127/79 (95) 98 97.5 07/10/25 20:00 Nasal Cannula* 2 28 Total Intake and Output 07/10/25 07/10/25 07/11/25 15:00 23:00 07:00 Intake Total 0 ml 900 ml Balance 0 ml 900 ml medications Current Medications Medications Dose Ordered Sig/Kathleen Route Start Time Stop Time Status Last Admin Dose Admin Acetaminophen 325 mg Q4HP PRN PO 07/04/25 22:30 07/10/25 03:55 325 MG Acetaminophen/ Hydrocodone Bitart 1 tab Q4HP PRN PO 07/04/25 22:30 Hold 07/06/25 09:29 1 TAB Ondansetron HCl 4 mg Q4HP PRN IV 07/04/25 22:30 07/05/25 21:52 4 MG Morphine Sulfate 2 mg Q4HPRN PRN IV 07/04/25 22:30 07/05/25 03:23 2 MG Diagnostic Test (Pha) 1 strip Q6HR 07/05/25 12:00 07/11/25 05:49 1 STRIP Insulin Human Regular Q6HR SC 07/05/25 12:00 07/11/25 05:48 2 UNITS Dextrose 50 ml UD PRN IV 07/05/25 07:15 Levothyroxine Sodium 100 mcg QAM@0600 PO 07/06/25 06:00 07/11/25 05:49 100 MCG Insulin Glargine 20 units HS SC 07/05/25 22:00 07/09/25 21:47 20 UNITS Carvedilol 6.25 mg Q12HR PO 07/05/25 22:00 07/10/25 21:37 6.25 MG Furosemide 40 mg DAILY PO 07/05/25 11:00 07/09/25 11:51 40 MG Clopidogrel Bisulfate 75 mg DAILY PO 07/05/25 11:00 07/09/25 11:51 75 MG Aspirin 81 mg DAILY PO 07/06/25 10:00 07/09/25 11:51 81 MG Atorvastatin Calcium 40 mg HS PO 07/05/25 22:00 07/10/25 22:04 40 MG Cefepime HCl 50 ml @ 12.5 mls/hr Q12H IV 07/06/25 13:00 07/11/25 00:11 12.5 MLS/HR Hydromorphone HCl 0.5 mg Q4HPRN PRN IV 07/06/25 12:45 07/11/25 06:46 0.5 MG Pantoprazole Sodium 40 mg DAILY IV 07/08/25 10:00 07/10/25 09:39 40 MG Empaglifozin 10 mg DAILY PO 07/07/25 10:00 07/09/25 11:50 10 MG Spironolactone 25 mg DAILY PO 07/08/25 10:00 07/09/25 11:52 25 MG Vancomycin HCl 0 ml @ 0 mls/hr UD IV 07/08/25 11:30 Alprazolam 0.25 mg Q8HP PRN PO 07/08/25 18:15 Alprazolam 0.25 mg BID PO 07/08/25 22:00 07/10/25 21:37 0.25 MG Vancomycin HCl 100 ml @ 100 mls/hr Q12H IV 07/10/25 10:00 07/10/25 21:36 100 MLS/HR Examination General Appearance: Cooperative. Well developed. Well nourished. NAD Pulmonary/Respiratory: Chest non-tender. Clear bilateral breath sounds, no crackles, no wheezing. Cardiovascular/Chest: Regular rate and rhythm. No murmurs. No JVD. Abdominal Exam: Normal bowel sounds. Soft. normal abdomen, no visible veins, Nontender. No hepatospenomegaly. No masses Lower extremities: 2+ lower extremity edema noted. Ulcer noted on the right lower extremity, dorsal aspect. Neuro/Mental Status: A&O x4. Coherent. Thoughts/Psych: Normal thought pattern. Appropriate mood and affect. Good judgement and insight Skin Exam: Normal inspection. Normal color. Warm. Dry laboratory and microbiology Laboratory Tests 07/11/25 08:21 Test 07/11/25 08:21 Range/Units Serum Glucose 114 H 74-106 mg/dL Microbiology Date/Time Source Procedure Growth Status 07/06/25 10:28 Toe Right (Big) Gram Stain - Final Complete 07/06/25 10:28 Wound Culture - Final Enterococcus faecalis Complete 07/05/25 13:55 Voided Urine Urine Culture - Final Complete 07/04/25 20:20 Blood Blood Culture - Final NO GROWTH AFTER 5 DAYS OF INCUBATION. Complete Labs and/or images reviewed: Labs reviewed by me, Image(s) reviewed by me Problem List/Assessment/Plan Problem List/Assessment/Plan Rectal bleeding likely due to hemorrhoids Probable liver cirrhosis, compensated Colitis versus inflammatory bowel disease Left hepatic lobe hypodense lesion 2.1 cm Right lower extremity ulcer Possible sepsis due to above ANGEL likely hemodynamically mediated/VMN Plan: Colonoscopy 07/10/2025: Trace to 1+ internal hemorrhoids; normal brown stool and no active bleeding no fresh or old blood seen in the lower GI. Incomplete colonoscopy examination up to the splenic flexure due to poor prep with large amount of thick liquid stool and debris in the colon appearing visualization. CEA, AFP within normal limits Patient will need to follow up with GI in the outpatient for elective colonoscopy with prolonged bowel prep Hepatitis panel negative MONET negative Thank you so much for the opportunity to consult on your patient. GI team will follow the patient. In case of any questions or concerns please feel free to reach out. Plan discussed with Dr. Hunt Plan discussed with: Patient, Other (RN) Dietary Evaluation Review Comments: 1) Add cardiac restriction to 60g CCHO diet 2) Initiate Filippo @ 1 pk bid 3) Initiate MVI @ 1 tb qd 4) Initiate Vitamin C @ 500 mg bid and zinc sulfate @ 220 mg for 7 days 5) Refer to outpatient RD/[facility] for diabetes education and weight management 6) Follow-up with podiatry 7) Follow-up with hospital social worker r/t polysubstance abuse 8) Continue to monitor I&O, labs, and skin integrity Expected Outcomes/Goals: 1) appetite and labs to improve 2) wound to improve 3) gradual wt loss 4) f/u in 3-5 days NADER LATHAM RESIDENT Jul 11, 2025 10:22
--- NOTE | 2025-07-11 10:38 | ECG ---
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
[2025-07-11 13:16] VITALS: BP 117/68; PULSE 86; RESP 18; TEMP 97.4; O2SAT 96
--- NOTE | 2025-07-11 14:51 | ECG ---
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
[2025-07-11 15:11] VITALS: BP 117/68; PULSE 86; RESP 18
--- NOTE | 2025-07-11 18:34 | DVHDSRES ---
Discharge Summary Date of Admission Resident Creating Document: NADER LATHAM RESIDENT Jul 04, 2025 at 22:25 Date of Discharge: Jul 11, 2025 Admitting Diagnosis wound infection Labs/Diagnostic Data: Laboratory Results Test 07/11/25 11:16 07/11/25 08:21 07/11/25 05:51 07/10/25 07:17 POC Glucose 197 mg/dl (70-106) White Blood Count 7.0 10^3/uL (4.4-10.8) Red Blood Count 4.19 10^6/uL (4.0-5.20) Hemoglobin 12.9 g/dL (12.2-16.2) Hematocrit 38.7 % (36.0-46.0) Mean Corpuscular Volume 92.3 fL (80.0-100.0) Mean Corpuscular Hemoglobin 30.7 pg (28.0-32.0) Mean Corpuscular Hemoglobin Concent 33.3 g/dL (32.0-36.0) Red Cell Distribution Width 16.0 % (11.8-14.3) Platelet Count 277 10^3/uL (140-450) Mean Platelet Volume 7.9 fL (6.9-10.8) Neutrophils (%) (Auto) 67.3 % (37.0-80.0) Lymphocytes (%) (Auto) 20.7 % (10.0-50.0) Monocytes (%) (Auto) 8.8 % (0.0-12.0) Eosinophils (%) (Auto) 2.6 % (0.0-7.0) Basophils (%) (Auto) 0.6 % (0.0-2.0) Neutrophils # (Auto) 4.7 10 ^3/uL (1.6-8.6) Lymphocytes # (Auto) 1.4 10 ^3/uL (0.4-5.4) Monocytes # (Auto) 0.6 10 ^3/uL (0-1.3) Eosinophils # (Auto) 0.2 10 ^3/uL (0-0.8) Basophils # (Auto) 0 10 ^3/uL (0-0.2) Nucleated Red Blood Cells 0.1 % Sodium Level 141 mmol/L (136-145) Potassium Level 4.5 mmol/L (3.5-5.1) Chloride Level 102 mmol/L (98-107) Carbon Dioxide Level 34 mmol/L (20-31) Anion Gap 5 (5-15) Blood Urea Nitrogen 18 mg/dL (9-23) Creatinine 0.94 mg/dL (0.550-1.02) Glomerular Filtration Rate Calc 73 mL/min (>90) BUN/Creatinine Ratio 19.1 (10.0-20.0) Serum Glucose 114 mg/dL (74-106) Calcium Level 9.1 mg/dL (8.7-10.4) Carcinoembryonic Antigen 15.83 ng/mL (<=5.0) Prothrombin Time 11.5 sec (9.3-11.8) Prothrombin Time INR 1.09 (0.9-1.15) Activated Partial Thromboplast Time 25.9 SEC (24.5-34.5) Vancomycin Level Trough 15.5 ug/mL (5-10) Test 07/09/25 13:13 07/08/25 17:00 07/08/25 13:00 07/06/25 18:26 Tumor Marker Alpha Fetoprotein <1.8 ng/mL (0.0-9.2) CA 125 Antigen 21.8 U/mL (0.0-38.1) Anti-Nuclear Antibody Screen Negative (Negative) Hepatitis A Antibody Total Positive (Negative) Hepatitis B Surface Antigen Negative (Negative) Hepatitis B Surface Antibody Negative (Negative) Hepatitis B Core Total Antibody Negative (Negative) Hepatitis C Antibody Negative (Negative) Magnesium Level 2.2 mg/dL (1.6-2.6) Total Bilirubin 0.5 mg/dL (0.2-1.0) Aspartate Amino Transferase (AST) 35 U/L (13-40) Alanine Aminotransferase (ALT) 30 U/L (7-40) Alkaline Phosphatase 92 U/L (46-116) Total Protein 7.0 g/dL (5.7-8.2) Albumin 4.5 g/dL (3.2-4.8) Thyroid Stimulating Hormone (TSH) > 150.00 uIU/mL Free Thyroxine (T4) Calculated 0.39 ng/dL (0.89-1.76) Test 07/06/25 07:40 07/05/25 13:55 07/05/25 05:00 07/05/25 04:45 Stool Occult Blood Positive (Negative) Stool Occult Blood Sample #3 (Negative) Urine Color Yellow (Yellow) Urine Clarity Turbid (Clear) Urine pH 5.5 (5.0-9.0) Urine Specific [place] 1.027 (1.001-1.035) Urine Protein Trace (Negative) Urine Ketones Negative (Negative) Urine Blood Negative /uL (Negative) Urine Nitrite Negative (Negative) Urine Bilirubin Negative (Negative) Urine Urobilinogen Normal mg/dL (Negative) Urine Leukocyte Esterase Negative /uL (Negative) Urine RBC 2 /hpf (0 - 4) Urine Microscopic WBC 5 /HPF (0-5) Urine Squamous Epithelial Cells Few /hpf (<5) Urine Calcium Oxalate Crystals Many (None Seen) Urine Bacteria None seen /hpf (None Seen) Urine Hyaline Casts Mod /lpf (0 - 2) Urine Mucus Few (None Seen) Urine Glucose Normal mg/dL (Normal) Urine Opiates Screen Pos (NEGATIVE) Urine Fentanyl Screen Neg (NEGATIVE) Urine Barbiturates Screen Neg (NEGATIVE) Urine Phencyclidine Screen Neg (NEGATIVE) Urine Amphetamines Screen Pos (NEGATIVE) Urine Benzodiazepines Screen Neg (NEGATIVE) Urine Cocaine Screen Neg (NEGATIVE) Urine Cannabinoids Screen Neg (NEGATIVE) Lactic Acid Level 1.4 mmol/L (0.4-2.0) Erythrocyte Sedimentation Rate 10 mm/hr (0-20) C-Reactive Protein High Sensitivity 0.43 mg/dL (<1.0) B-Type Natriuretic Peptide 53.73 pg/mL (0-100) Test 07/04/25 20:20 Hemoglobin A1c 9.3 % A1C (<5.7) Other Laboratory Tests 07/11/25 08:21 Brief Hx & Hospital Course: This is a 55-year-old female with past medical history of insulin-dependent diabetes mellitus, COPD, CHF, hypertension, hyperlipidemia, [place], cervical cancer and thyroid disease. Patient came to the ER with a chief complaint of pain in the right foot secondary to an ulcer that had been there for almost 3 weeks. Patient mentioned that while cleaning her garage 3 weeks back, an insect bit her foot post which an ulcer began to develop at the site. The patient was given oral antibiotics for the same, but there was no improvement seen in the wound. The patient described the pain as a burning sensation, 8 on 10 in intensity. The patient stated the pain is relieved with rest and aggravated by walking. Patient uses 2 L oxygen at home. The patient had a few episodes of blood in the stool, for which GI was consulted and colonoscopy was done which could not be completed as there was inadequate prep. Patient was asked to repeat colonoscopy outpatient in the next few days. Echo was done which showed concentric left ventricular hypertrophy and ejection fraction between 35 and 40% with global hypokinesis. Duplex scan for lower extremity vessels was done which showed no hemodynamically significant stenosis on the right 20-49% stenosis of the left common femoral artery. CT abdomen showed bowel wall thickening of the descending colon with surrounding stranding likely representing colitis left hepatic tube hypodense lesion measuring 2.[address] was done for the patient which showed the hepatic mass to be likely benign, hepatomegaly possible colitis. The patient mentioned she wanted to leave without completing her treatment, implications of which were clearly explained to her. The patient decided to leave AMA. Past medical history: CHF, COPD insulin-dependent diabetes mellitus, hypertension, hyperlipidemia, [place], cervical cancer, thyroid disease Past surgical history: partial hysterectomy, cholecystectomy, hernia repair, tonsillectomy Family history: family history of cancers Personal history: Patient smokes half a pack of cigarettes a day since 41 years, drinks occasionally, smokes methamphetamine Lives with: Family PCP: Constitutional: No: Fever, Chills, Sweats, Weakness, Malaise Eyes: No: Pain, Vision change, Conjunctivae inflammation, Eyelid inflammation, Other, Redness ENT: No: Ear pain, Ear discharge, Nose pain, Nose discharge, Nose congestion, Mouth pain, Mouth swelling, Throat pain, Throat swelling Respiratory: Shortness of breath; No: Cough, Dry, SOB with excertion, Wheezing, Hemoptysis, Pleuritic Pain, Sputum, Wheezing Cardiovascular: No: Chest Pain, Palpitations, Orthopnea, Paroxysmal Noc. Dyspnea, Edema, Lt Headedness Gastrointestinal: No: Nausea, Vomiting, Abdominal Pain, Diarrhea, Constipation, Melena, Hematochezia Genitourinary: No Dysuria, No Frequency, No Incontinence, No Hematuria, No Retention Musculoskeletal: foot pain; No: other, neck pain, shoulder pain, arm pain, back pain, hand pain, leg pain Skin: wound on right foot, Lesions, Jaundice, Bruising Neurological: No: Weakness, Numbness, Incoordination, Change in speech, Confusion, Seizures Allergies: Coded Allergies: Methylphenidate (Verified Allergy, Unknown, 08/14/24) Penicillins (Verified Allergy, Unknown, 08/14/24) General: Patient alert and oriented in person, place and time. Patient following commands. moderate distress. Patient is on 3 L oxygen by nasal cannula. HEENT: Normocephalic, atraumatic, moist mucous membranes Respiratory/pulmonary: Clear lungs bilaterally, vesicular murmurs present in almost all lung stokes, no associated crackles or wheezes. Cardiovascular: Normal heart sounds S1 and S2 with no associated murmurs Abdomen: Abdomen nondistended, there is no pain to palpation in any of the abdominal quadrants, no palpable masses. Extremities: 2+ peripheral edema present at the lower extremities, Right foot ulcer on dorsal surface of base of 1st metatarsal with black eschar, white discharge, Erythematous Peripheral Pulses: 3+ Radial (R). 3+ Radial (L). reduced pedal pulses Skin: No rashes or pruritus, there is no sacral edema present at this time. Neurological: Intact cranial nerves with no focal neurologic deficits Operations or Procedures 1.PROCEDURE(s): CXR1 - CHEST XRAY 1 VIEW REASON: Pre op ORDER NUMBER(s): [id number], ACCESSION NUMBER(s): [id number] EXAM: XY CHEST XRAY 1 VIEW Indication: pain Technique: Single frontal view of the chest was obtained Comparison: XY CHEST PORTABLE on DOS: 08/14/24 FINDINGS: Lines and Tubes: None Lungs: No focal consolidation. Low lung volumes. Pleura: No effusion. No pneumothorax. Cardiomediastinal contours: Unremarkable Bones: No acute osseous abnormality. IMPRESSION: Low lung volumes. No acute cardiopulmonary disease. 2.PROCEDURE(s): BLEAD - BiLat Low Ext Art Duplex REASON: decreased pulses ORDER NUMBER(s): [id number], ACCESSION NUMBER(s): [id number] Bilateral Lower Extremity Arterial Duplex Clinical History: decreased pulses Comparison: None Technique: Duplex Doppler evaluation including color Doppler and spectral/pulsed waveform analysis of the lower extremity arteries was performed. Findings: RIGHT: Peak systolic velocities are less than 150 cm/sec. The waveforms are triphasic with diastolic flow. LEFT: Peak systolic velocities are as follows: STOCK SHAPER 153 cm/s All of the velocities are less than 150 cm/sec. The waveforms are triphasic with diastolic flow. IMPRESSION: No hemodynamically significant stenosis based on peak systolic velocity criteria on the right. 20-49% stenosis of the left common femoral artery based on peak systolic velocity criteria. REFERENCE VALUES, [facility] ([facility]) vascular Imaging Lab Criteria: Peak systolic velocity ranges (in cm/sec) are as follows: <150 cm/s - <20 % stenosis 150-200 cm/s - 20-49% stenosis 200-300 cm/s - 50-75% stenosis >300 cm/s -> 75% stenosis 3.PROCEDURE(s): ABPLORAL - CT AB PEL WITH ORAL CON ONLY REASON: GI bleeding abd pain ORDER NUMBER(s): [id number], ACCESSION NUMBER(s): [id number] Indication: GI bleeding abd pain Technique: CT axial images of the abdomen and pelvis are obtained without contrast. Coronal and sagittal reformats were obtained. Radiation Dose Information: CTDI volume is 22.11 mGy. Dose-length product is 1400.94 mGy*cm Comparison: None FINDINGS: There is limited interpretation of the abdomen and pelvis without administration of intravenous contrast. Lung bases demonstrate ground-glass opacities. Cardiomegaly. Adrenal glands unremarkable in shape. Spleen measures 13.8 cm. Hepatic steatosis. Cirrhotic morphology liver. Hepatomegaly. Left hepatic lobe hypodense lesion measuring 2.1 cm. The kidneys demonstrate no hydronephrosis / nephrolithiasis. Stomach is relatively nondistended. Small bowel loops are normal in caliber. Colonic diverticular disease. Bowel wall thickening of the splenic flexure, descending colon with surrounding stranding. Moderate volume stool within the more proximal colon. Normal appendix. Abdominal aortic atherosclerotic disease. Bladder partially distended. No free pelvic fluid. No inguinal lymphadenopathy. Bladder partially distended. No free pelvic fluid. No inguinal lymphadenopathy Mild thoracolumbar degenerative disc. IMPRESSION: Limited evaluation without contrast. Bowel wall thickening of the descending colon with surrounding stranding, likely representing colitis. Other considerations include inflammatory bowel disease. Cirrhotic morphology liver, hepatic steatosis, splenomegaly. Left hepatic lobe hypodense lesion measuring 2.1 cm, incompletely characterized. Recommend multiphasic MRI abdomen with and without contrast. Atherosclerotic disease. Cholecystectomy. Other findings as described 4.PROCEDURE(s): ABPLIV - CT AB PEL WITH IV CON ONLY REASON: triple phase ct to evaluate 2.[address] cm liver mass on CT abdomen ORDER NUMBER(s): [id number], ACCESSION NUMBER(s): [id number] Exam: CT CT AB PEL WITH IV CON ONLY History: triple phase ct to evaluate 2.1 cm liver mass on CT abdomen COMPARISON: CT CT AB PEL WITH ORAL CON ONLY on DOS: 07/08/25 Technique: Multidetector spiral CT of the abdomen and pelvis was performed from lung bases to pubic symphysis. Intravenous contrast was administered during this examination. Portal venous imaging was obtained. Axial, coronal and sagittal multiplanar reformats were performed by the technologist on a separate workstation. Radiation Dose : 1. Abdomen/Pelvis: CTDIvol 38.94mGy, DLP 4370.45 mGy*cm. CONTRAST: Type of contrast: Omnipaque 300 Contrast injected: 100 ml Findings: Lung Bases: No acute or significant lung base finding. Cardiomegaly. No pleural or pericardial effusion. Liver: The liver is enlarged, measuring 22.0 cm in craniocaudal dimension. 2.4 cm relatively well-circumscribed hypoattenuating lesion within hepatic segment 4B without evidence of significant peripheral or late phase enhancement. Otherwise, normal hepatic vascular enhancement. Gallbladder and Biliary Tree: Status post cholecystectomy. Spleen: Unremarkable Pancreas: The pancreas is normal in appearance without focal lesions or abnormal enhancement. Adrenal Glands: Unremarkable Kidneys: No hydronephrosis. Bladder: Unremarkable Bowel: The stomach is grossly normal in appearance. [id number] circumferential intramural edema of the splenic flexure and proximal descending colon with mild adjacent inflammatory change suggestive of sequelae of colitis. Small bowel and colon are otherwise normal in caliber and distribution. The appendix is normal. Ascites: Absent Lymphadenopathy: No mesenteric, retroperitoneal or periportal lymphadenopathy. Abdominal Wall and Mesentery: Unremarkable. Vasculature: The visualized abdominal aorta is normal in size and caliber. Atherosclerotic vascular calcifications. Abdominal and pelvic vessels demonstrate normal enhancement. Pelvic Organs: Unremarkable status post hysterectomy. Musculoskeletal: No aggressive focal bony lesions, acute fractures or dislocation. IMPRESSION: 1. Hepatic segment 4B hypoattenuating lesion without evidence of significant peripheral overly efface enhancement. Considerations include benign etiology such as hepatic cyst and hemangioma. If further characterization is desired, multiphasic MRI is recommended. 2. Cardiomegaly. 3. Hepatomegaly. 4. Ouyc-vu-lcehspfv circumferential intramural edema of the splenic flexure and proximal descending colon with mild adjacent inflammatory change suggestive of sequelae of colitis. Radiation optimization: All CT scans at this facility use at least one of these dose optimization techniques: automated exposure control mA and/or kV adjustment per patient size (includes targeted exams where dose is matched to clinical indication) or iterative reconstruction. 5.PROCEDURE(s): ECIDC - ECHO 2D MODE CARDIAC DOP REASON: rule out structural heart diesase ORDER NUMBER(s): [id number], ACCESSION NUMBER(s): [id number] APPROVED REPORT EXAM: Two-dimensional and M-mode echocardiogram with Doppler and color Doppler. Blood Pressure: 158/90 mmHg INDICATION Rule out structural heart disease RISK FACTORS Height: 65, Weight: 285 DIMENSIONS LVDd 4.9 (3.8-5.7cm) LA (2D) 4.5 (1.9-4.0cm) Aortic Root 3.9 (2.0- 3.7cm) LVDs 4.1 (2.5-4.0cm) LA (MM) (1.9-4.0cm) Aortic Cusp Exc 2.0 (1.5- 2.0cm) EF (%) 35.0 (55-70%) Rt. Atrium 4.0 (1.9-4.0cm) Asc. Aorta cm Mitral Valve Mitral Mitral Stenosis E wave 1.07m/s MV Mean GR. 3mmHg A wave 0.71m/s MV Peak GR. 48mmHg E/A ratio 1.5 2D MVA cm2 DECEL Time 200ms PRESS 1/2 Time 56ms IVRT ms Dop MVA 3.92cm2 Aortic Valve Aortic Valve Aortic Stenosis V1 0.64m/s AO Mean GR. 3mmHg V2 1.26m/s AO Peak GR. 6mmHg LVOT Diameter 2.2 (1.8-2.4cm) Doppler PATRIA 1.93cm2 AI P 1/2 Time 420.05ms Pulmonic Valve V2 0.96m/s Tricuspid Valve TR Velocity 2.53m/s RVSP 41mmHg Other Information Technically limited study due to body habitus. Conclusion Sinus rhythm. Concentric LVH. Left atrial enlargement. Aortic root enlargement. Valves appear to be structurally normal. Left ventricular function appears diminished. EF of approximately 35-40% with mild global hypokinesis. Mild MR. Mild TR. Trace pulmonic insufficiency. Trace aortic insufficiency. No pericardial effusion masses or vegetations discernible. 6.PROCEDURE(s): EKG - ELECTROCARDIGRAM ORDER NUMBER(s): [id number], ACCESSION NUMBER(s): [id number] [facility] Test Date: 2025-07-10 Test Time: 09:51:41 Pat Name: LEESA BELLAYANNA Department: Respiratoy Room: [facility] Gender: F [employer] Online: REJI ALCALA LVN : 1970 Requested By: SABINA HUNT Order Number: [id number] Reading MD: Shamir Christianson Measurements Intervals [place] Rate: 67 P: 67 CT: 172 QRS: -10 QRSD: 106 T: 115 QT: 458 QTc: 484 Interpretive Statements Sinus rhythm LVH with secondary repolarization abnormality Inferior infarct, old Anterior Q waves, possibly due to LVH Electronically Signed On 07-11-2025 14:39:13 PDT by Shamir Christianson Please click the below link to view image of tracing. 7.PROCEDURE: Incomplete Colonoscopy due to poor prep PREOPERATIVE INDICATION: The patient is a 55 -year-old female undergoing colonoscopy for history of rectal bleeding POSTOPERATIVE DIAGNOSES: 1. Trace to 1+ internal hemorrhoids ; normal brown stool and no active bleeding no fresh or old blood seen in the lower GI 2. Incomplete colonoscopy examination up to the splenic flexure due to poor prep with a large amount of thick liquid stool and debris in the colon impairing visualization PROCEDURE PERFORMED BY: Sabina Hunt M.D. SCOPE: [place] videocolonoscope. ASA CLASS: 3. PREOPERATIVE MEDICATIONS: Versed 2 mg, Fentanyl 50 mcg, Benadryl 50 mg PROCEDURE IN DETAIL: After obtaining an informed consent, the patient was placed on left lateral decubitus position. She was then sedated with the above medications. A rectal examination was performed that was normal. The colonoscope was then passed through the anus into the rectosigmoid colon up to the splenic flexure. The colonoscope was then withdrawn. Patient had a very poor prep that was limiting visualization up to and beyond the extended examination The visualized portion of the colon was normal with no polyps or masses seen. Patient had no fresh or old blood in the lower GI tract She had liquid brown stool .On retroflexion patient had trace to 1+ internal hemorrhoids The patient tolerated the procedure well without difficulty. WITHDRAWAL TIME: Not applicable QUALITY OF THE PREP: [place] Bowel Prep score: Not applicable, poor prep COMPLICATIONS : None SPECIMENS: None DISPOSITION: Transfer back to the floor Stable PLAN: 1. Repeat colonoscopy with better 2-3 day bowel prep electively as an outpatient in the near future 2. No active bleeding at this time and H&H is stable. 3. Resume GI soft diet advance as tolerated 4. Outpatient follow up with me in 4-6 weeks to review results and discuss further management Condition at Discharge: Undetermined Final Diagnosis/Problems List Acute right foot infection status post bite by unspecified organism Uncontrolled type 2 DM with HbA1c 9.1 chronic hypoxic respiratory failure likely from CHF History of CAD Chronic HFrEF with EF 35-40% Probable liver cirrhosis, compensated Multiple episodes of rectal bleed Hepatic lobe hypodense lesion 2.1 cm colitis Essential hypertension, controlled ANGEL likely due to VMN on CKD Mild Peripheral arterial disease hyperlipidemia history of cervical cancer status post partial hysterectomy hypothyroidism: TSH >150 Nicotine dependence Chronic methamphetamine use History of of depression/ anxiety Morbid obesity: BMI 47.5 Discharge Disposition: AMA Discharge Instruct/Medications Scheduled Aspirin (Aspirin Low Dose), 1 TAB PO DAILY Atorvastatin Calcium (Atorvastatin Calcium), 1 TAB PO QPM Bupropion Hcl (Bupropion Hcl Er), 1 TAB PO BID Carvedilol (Carvedilol), 1 TAB PO BID Clopidogrel Bisulfate (Clopidogrel), 75 MG PO DAILY Fluticasone-Salmeterol (Advair Diskus 250/50), 1 PUFF INH BID Furosemide (Furosemide), 40 MG PO DAILY Levothyroxine Sodium (Levothyroxine Sodium), 1 TAB PO QAM Lisinopril (Lisinopril), 1 TAB PO BID Potassium Chloride (Potassium Chloride Cr), 10 MEQ PO DAILY Scheduled PRN Albuterol Sulfate (Albuterol Sulfate Hfa), 1 PUFF INH Q6HP PRN for SHORTNESS OF BREATH OR WHEEZIN Discharge Statement: "Patient was advised to return to the ER or call 911 if any headaches, dizziness, shortness of breath, chest pain, abdominal pain, bleeding, fevers, or worsening of medical condition. Patient was counseled about treatment plan, medications, possible side effects, patientverbalized understanding. All questions were answered to the best of my ability. This discharge took greater then 30 minutes in planning, reviewing documentation, counseling the patient, and discussing with other team members." ASSESSMENT ASSESSMENT Assessment RACHANA DWYER RESIDENT Jul 11, 2025 18:34
== END 2025-07-11 16:35 | disposition left against medical advice (07) | DRG 720 ==
LOC: ER 18:59 → OVERFLOW 22:25 → EAST 07-05 22:08
PROVIDERS: ADMIT Student in an Organized Health Care Education/Training Program; ATTEND Internal Medicine Gastroenterology
PROC: 0DJD8ZZ Inspection of Lower Intestinal Tract, Via Natural or Artificial Opening Endoscopic (ICD-10-PCS; principal; 2025-07-10 14:25)
DX: A41.9 Sepsis, unspecified organism (principal); N17.0 Acute kidney failure with tubular necrosis; J96.11 Chronic respiratory failure with hypoxia; I13.0 Hypertensive heart and chronic kidney disease with heart failure and stage 1 through stage 4 chronic kidney disease, or unspecified chronic kidney disease; L97.518 Non-pressure chronic ulcer of other part of right foot with other specified severity; I50.22 Chronic systolic (congestive) heart failure; K74.60 Unspecified cirrhosis of liver; E11.51 Type 2 diabetes mellitus with diabetic peripheral angiopathy without gangrene; E11.22 Type 2 diabetes mellitus with diabetic chronic kidney disease; E11.621 Type 2 diabetes mellitus with foot ulcer; E66.01 Morbid (severe) obesity due to excess calories; E03.9 Hypothyroidism, unspecified; F15.10 Other stimulant abuse, uncomplicated; N18.9 Chronic kidney disease, unspecified; Z68.42 Body mass index [BMI] 45.0-49.9, adult; J44.9 Chronic obstructive pulmonary disease, unspecified; E78.5 Hyperlipidemia, unspecified; K52.9 Noninfective gastroenteritis and colitis, unspecified; K62.5 Hemorrhage of anus and rectum; Z53.29 Procedure and treatment not carried out because of patient's decision for other reasons; F17.210 Nicotine dependence, cigarettes, uncomplicated; K64.8 Other hemorrhoids; I25.10 Atherosclerotic heart disease of native coronary artery without angina pectoris; I25.2 Old myocardial infarction; Z90.49 Acquired absence of other specified parts of digestive tract; Z80.8 Family history of malignant neoplasm of other organs or systems; Z88.0 Allergy status to penicillin; Z90.711 Acquired absence of uterus with remaining cervical stump; Z79.4 Long term (current) use of insulin; W57.XXXA Bitten or stung by nonvenomous insect and other nonvenomous arthropods, initial encounter; Z85.41 Personal history of malignant neoplasm of cervix uteri; Y93.89 Activity, other specified; Y92.89 Other specified places as the place of occurrence of the external cause; Y99.8 Other external cause status
CPT/HCPCS: 36415; 71045; 74176; 74177; 80048; 80053; 80202; 80307; 81001; 82105; 82270; 82378; 82962; 83036; 83605; 83735; 83880; 84439; 84443; 85025; 85610; 85652; 85730; 86038; 86141; 86304; 86704; 86706; 86708; 86803; 86850; 86900; 86901; 87040; 87077; 87081; 87086; 87186; 87340; 93005; 93306; 93925; 96361; 96365; G0378; J1815; J2250; J2405; J2470